=== PATIENT | female | born 1970 | race Caucasian/White ===

== ENCOUNTER 2016-11-18 12:52 | Emergency (ER) | payer BC ==
[~2016-11-18] VITALS: Ht 170.2 cm; Wt 59.0 kg
[~2016-11-18 12:52] MED LIST: ALBU1.25 NEB; BENZ200C40 PO; BUDE10.2 IH; CLON0.1T PO; GABA600T2 PO; MELO-180 PO; TRAM50TA PO; TRAZ150T57 PO
[2016-11-18] MEDS ORDERED: SOLU-MEDROL IM STA (13:16)
[2016-11-18] MEDS ORDERED: ROCEPHIN IM STA (13:16)
[2016-11-18] MEDS ORDERED: LIDOCAINE 1% VIAL ONE (13:20)
[2016-11-18] MEDS ORDERED: SOLU-MEDROL ONE (13:21)
[2016-11-18] MEDS ORDERED: ROCEPHIN ONE (13:21)
--- NOTE | 2016-11-18 13:30 | ER.PDOC ---
General Chief Complaint: General Complaint Stated Complaint: SINUS PROBLEMS Time seen by MD: 13:12 Source: patient Exam Limitations: no limitations History of Present Illness Initial Comments seasonal allergies has caused a sinus infection Timing/Duration: gradual Severity: moderate (maxillary tebderness) Prior symptoms/Treatment: Similar symptoms previous Allergies: Coded Allergies: egg (Verified Allergy, Unknown, 02/01/15) sulfamethoxazole (Verified Allergy, Unknown, Hives, 01/28/16) trimethoprim (Verified Allergy, Unknown, Hives, 01/28/16) Home Meds Reported Medications Budesonide/Formoterol Fumarate (SYMBICORT 160-4.5 MCG INHALER) 10.2 Gm Hfa.aer.ad, 2 PUFF IH BID, #1 INHALER 5 Refills 01/28/16 Benzonatate (BENZONATATE) 200 Mg Capsule, 200 MG PO Q8HR, CAPSULE 01/28/16 Clonidine Hcl (CLONIDINE HCL) 0.1 Mg Tablet, 0.1 MG PO HS, TABLET 01/28/16 Tramadol Hcl (TRAMADOL HCL) 50 Mg Tablet, 50 MG PO TID, TABLET 01/28/16 Trazodone Hcl (TRAZODONE HCL) 150 Mg Tablet, 150 MG PO HS, TABLET 01/28/16 Gabapentin (GABAPENTIN) 600 Mg Tablet, 600 MG PO TID, TABLET 01/28/16 Meloxicam (MELOXICAM) 7.5 Mg Tablet, 7.5 MG PO BID, TABLET 01/28/16 Albuterol Sulfate (ALBUTEROL SULFATE) 1.25 Mg/3 Ml Vial.neb, 1 VIAL NEB Q4HR, # 75 MILLILITER 02/01/15 Constitutional: fever Eyes: no symptoms reported Ears: no symptoms reported Nose: see HPI (maxillary tenderness bilateral) Mouth: no symptoms reported Throat: no symptoms reported Respiratory: no symptoms reported Past Medical History Surgical History: appendectomy, cholecystectomy, , hysterectomy Social History Smoking: greater than 1 pack/day Alcohol Use: none Drug Use: none Physical Exam General Appearance: alert, mild distress Nose: uncertain (bilateral maxillary sinus tenderness to percussion) Head/Neck: atraumatic, thyroid nml Eyes/Ears: eyes nml inspection, PERRL, no nystagmus, TM nml Mouth: lips, gums nml, pharynx nml NEURO/PSYCH: oriented X3, mood/effect nml Respiratory: no resp. distress CVS: reg. rate & rhythm, heart sounds nml Progress Progress discussed treatment plan and need for follow up if symptom persist Departure Time of Disposition: 13:29 Disposition: 01 HOME, SELF-CARE Impression: Primary Impression: Maxillary sinusitis, acute Qualified Codes: J01.00 - Acute maxillary sinusitis, unspecified Condition: Stable Referrals: ANIRUDH HAJI DO (PCP) PRIMARY CARE PROVIDER NOEMI BARNES MD Nov 18, 2016 13:30
[2016-11-18 13:36] VITALS: BP 140/88
== END 2016-11-18 13:44 | disposition home or self-care (01) ==
LOC: ER 12:52
DX: J01.00 Acute maxillary sinusitis, unspecified (principal); F17.200 Nicotine dependence, unspecified, uncomplicated; Z79.899 Other long term (current) drug therapy; Z91.012 Allergy to eggs; Z88.8 Allergy status to other drugs, medicaments and biological substances; Z90.49 Acquired absence of other specified parts of digestive tract
CPT/HCPCS: 96372 ×2; 99284; J0696; J2001; J2930

== ENCOUNTER 2016-12-13 19:53 | Emergency (ER) | payer BC ==
[~2016-12-13] VITALS: Ht 170.2 cm; Wt 59.0 kg
[~2016-12-13 19:53] MED LIST changes: -BENZ200C40 PO; +BENZ200C48 PO; -MELO-180 PO; +MELO7.5T31 PO
[2016-12-13] MEDS ORDERED: SOLU-MEDROL ONE (20:01)
[2016-12-13] MEDS ORDERED: DUONEB 0.5 MG-3 MG/3 ML SOLN IH ONE (20:03)
[2016-12-13] MEDS ORDERED: DECADRON ONE (20:03)
[2016-12-13] MEDS ORDERED: SOLU-MEDROL IM STA (20:26)
[2016-12-13] MEDS ORDERED: DECADRON IH STA ×2 (20:26)
[2016-12-13] MEDS ORDERED: DUONEB 0.5 MG-3 MG/3 ML SOLN IH STA ×2 (20:26)
--- NOTE | 2016-12-13 20:30 | ER.PDOC ---
General Chief Complaint: Cough/Congestion Stated Complaint: COUGH Time seen by MD: 20:29 Source: patient History of Present Illness Initial Comments Cough and congestion for 5 days Severity: moderate Modifying Factors: improves with albuterol nebulizer Associated Symptoms: cough, wheezing Prior symptoms/Treatment: Similar symptoms previous Allergies: Coded Allergies: egg (Verified Allergy, Unknown, 02/01/15) sulfamethoxazole (Verified Allergy, Unknown, Hives, 01/28/16) trimethoprim (Verified Allergy, Unknown, Hives, 01/28/16) Home Meds Reported Medications Budesonide/Formoterol Fumarate (SYMBICORT 160-4.5 MCG INHALER) 10.2 Gm Hfa.aer.ad, 2 PUFF IH BID, #1 INHALER 5 Refills 01/28/16 Benzonatate (BENZONATATE) 200 Mg Capsule, 200 MG PO Q8HR, CAPSULE 01/28/16 Clonidine Hcl (CLONIDINE HCL) 0.1 Mg Tablet, 0.1 MG PO HS, TABLET 01/28/16 Tramadol Hcl (TRAMADOL HCL) 50 Mg Tablet, 50 MG PO TID, TABLET 01/28/16 Trazodone Hcl (TRAZODONE HCL) 150 Mg Tablet, 150 MG PO HS, TABLET 01/28/16 Gabapentin (GABAPENTIN) 600 Mg Tablet, 600 MG PO TID, TABLET 01/28/16 Meloxicam (MELOXICAM) 7.5 Mg Tablet, 7.5 MG PO BID, TABLET 01/28/16 Albuterol Sulfate (ALBUTEROL SULFATE) 1.25 Mg/3 Ml Vial.neb, 1 VIAL NEB Q4HR, # 75 MILLILITER 02/01/15 Past Medical History Medical History: asthma, fibromyalgia Surgical History: appendectomy, cholecystectomy, , hysterectomy LMP (females 10-50): hysterectomy Social History Smoking: cigarettes, less than 1 pack/day Alcohol Use: none Drug Use: none Review of Systems Constitutional: no symptoms reported Respiratory: see HPI Cardiovascular: no symptoms reported Gastrointestinal: no symptoms reported Genitourinary: no symptoms reported All Other Systems: Reviewed and Negative Physical Exam General Appearance: No Apparent Distress, WD/WN Respiratory: chest non-tender, no respiratory distress, wheezing Cardiovascular: Normal Peripheral Pulses, Regular Rate, Rhythm, No Edema, No Gallop, No JVD, No Murmur Gastrointestinal: Normal Bowel Sounds, No Organomegaly, No Pulsatile Mass, Non Tender, Soft Extremities: Normal Range of Motion, Non-Tender, Normal Inspection, No Pedal Edema, No Calf Tenderness, Normal Capillary Refill 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, No Motor/Sensory Deficits, Alert, Normal Mood/Affect, Oriented x 3 Skin: Normal Color, Warm/Dry Results/Orders Results/Orders Administered Medications Medications (Trade) Dose Ordered Sig/Marge Route PRN Reason Start Time Stop Time Status Last Admin Dose Admin Albuterol/ Ipratropium (Duoneb 0.5 Mg-3 Mg/3 ml Soln) 3 ml STAT STAT IH 12/13/16 20:26 12/13/16 20:28 DC 12/13/16 20:33 Dexamethasone Sodium Phosphate (Decadron) 4 mg STAT STAT IH 12/13/16 20:26 12/13/16 20:28 DC 12/13/16 20:32 Methylprednisolone Sodium Succinate (Solu-Medrol) 125 mg STAT STAT IM 12/13/16 20:26 12/13/16 20:28 DC 12/13/16 20:30 Levalbuterol HCl (Xopenex) 1.25 mg STAT STAT IH 12/13/16 20:40 12/13/16 20:41 DC 12/13/16 20:43 Departure Time of Disposition: 21:09 Disposition: 01 HOME, SELF-CARE Impression: Primary Impression: Chronic asthmatic bronchitis with acute exacerbation Condition: Improved Referrals: ANIRUDH HAJI DO (PCP) PRIMARY CARE PROVIDER Additional Instructions: Z pack Prednisone Albuterol HHN F/U with your PCP in 2-3 days BEBE LEARY MD Dec 13, 2016 20:30
[2016-12-13] MEDS ORDERED: XOPENEX IH STA (20:40)
[2016-12-13] MEDS ORDERED: XOPENEX IH ONE (20:40)
[2016-12-13 21:17] VITALS: BP 104/69
== END 2016-12-13 21:15 | disposition home or self-care (01) ==
LOC: ER 19:53
DX: J44.1 Chronic obstructive pulmonary disease with (acute) exacerbation (principal); M79.7 Fibromyalgia; F17.210 Nicotine dependence, cigarettes, uncomplicated; Z90.49 Acquired absence of other specified parts of digestive tract; Z90.710 Acquired absence of both cervix and uterus; Z91.012 Allergy to eggs; Z88.8 Allergy status to other drugs, medicaments and biological substances; Z79.899 Other long term (current) drug therapy
CPT/HCPCS: 94640 ×2; 96372; 99284; J1100; J2930; J7620

== ENCOUNTER 2016-12-22 16:36 | Emergency (ER) | payer BC ==
[~2016-12-22] VITALS: Ht 170.2 cm; Wt 56.7 kg
--- NOTE | 2016-12-22 17:12 | DIREP ---
PROCEDURE:CHEST 2 VIEWS COMPARISON:None. INDICATIONS:chest pain with coughing FINDINGS: LUNGS/PLEURA:Lungs appear hyperinflated. No focal consolidation. No pneumothorax. No effusions. VASCULATURE:Normal. Unremarkable pulmonary vasculature. CARDIAC:Normal. No cardiac silhouette abnormality or cardiomegaly. MEDIASTINUM:Normal. No visible mass or adenopathy. BONES:Normal. No fracture or visible bony lesion. OTHER:Negative. CONCLUSION:COPD is suspected. No acute superimposed process Dictated by: Shiraz Stroud MD on 12/22/2016 at 05:08 PM
--- NOTE | 2016-12-22 17:24 | ER.PDOC ---
General Chief Complaint: Dyspnea/Respdistress Stated Complaint: CHEST PAIN,SHORT OF BREATH Time seen by MD: 17:19 Source: patient, family Exam Limitations: no limitations History of Present Illness Initial Comments 46 year old white female with cough and pleuritic chest pain. Right side of chest hurts when she coughs. This has been getting worse since she was seen last week. Cutting back on smoke but has not. Advised to quit smoking. Afebrile. Some sputum production. Pain is reproducible with coughing. Timing/Duration: 1 week Severity/Quality: moderate Radiation: no radiation Activities at Onset: other (cough) Prior CP/Workup: No Prior Chest Pain Allergies: Coded Allergies: egg (Verified Allergy, Unknown, 02/01/15) sulfamethoxazole (Verified Allergy, Unknown, Hives, 01/28/16) trimethoprim (Verified Allergy, Unknown, Hives, 01/28/16) Home Meds Reported Medications Budesonide/Formoterol Fumarate (SYMBICORT 160-4.5 MCG INHALER) 10.2 Gm Hfa.aer.ad, 2 PUFF IH BID, #1 INHALER 5 Refills 01/28/16 Benzonatate (BENZONATATE) 200 Mg Capsule, 200 MG PO Q8HR, CAPSULE 01/28/16 Clonidine Hcl (CLONIDINE HCL) 0.1 Mg Tablet, 0.1 MG PO HS, TABLET 01/28/16 Tramadol Hcl (TRAMADOL HCL) 50 Mg Tablet, 50 MG PO TID, TABLET 01/28/16 Trazodone Hcl (TRAZODONE HCL) 150 Mg Tablet, 150 MG PO HS, TABLET 01/28/16 Gabapentin (GABAPENTIN) 600 Mg Tablet, 600 MG PO TID, TABLET 01/28/16 Meloxicam (MELOXICAM) 7.5 Mg Tablet, 7.5 MG PO BID, TABLET 01/28/16 Albuterol Sulfate (ALBUTEROL SULFATE) 1.25 Mg/3 Ml Vial.neb, 1 VIAL NEB Q4HR, # 75 MILLILITER 02/01/15 Past Medical History Medical History: fibromyalgia, other (ra/fibromyalgia) Surgical History: no surgical history, cholecystectomy, , hysterectomy LMP (females 10-50): hysterectomy Social History Smoking: less than 1 pack/day Alcohol Use: none Drug Use: none Constitutional: denies no symptoms reported, denies see HPI, denies chills, denies diaphoresis, denies fever, denies malaise, denies weakness, denies other EENTM: denies no symptoms reported, denies see HPI, denies eye pain, denies blurred vision, denies tearing, denies double vision, denies ear pain, denies ear discharge, denies nose pain, denies nose congestion, denies throat pain, denies throat swelling, denies mouth pain, denies mouth swelling, denies other Respiratory: see HPI Cardiovascular: denies no symptoms reported, denies see HPI, denies chest pain , denies edema, denies irregular heart rate, denies lightheadedness, denies palpitations, denies syncope, denies other Gastrointestinal: denies no symptoms reported, denies see HPI, denies abdomen distended, denies abdominal pain, denies blood streaked bowels, denies constipated, denies diarrhea, denies difficulty swallowing, denies nausea, denies poor appetite, denies poor fluid intake, denies rectal bleeding, denies vomiting, denies other Genitourinary: denies no symptoms reported, denies see HPI, denies burning, denies dysuria, denies discharge, denies frequency, denies flank pain, denies hematuria, denies incontinence, denies pain, denies urgency, denies other Musculoskeletal: joint pain, muscle stiffness Skin: denies no symptoms reported, denies see HPI, denies change in color, denies change in hair/nails, denies dryness, denies lesions, denies lumps, denies rash, denies other Psychiatric/Neurological: depressed Physical Exam General Appearance: No Apparent Distress, WD/WN HEENT: PERRL/EOMI, Normal ENT Inspection, TMs Normal, Pharynx Normal Neck: Non-Tender, Full Range of Motion, Supple, Normal Inspection Respiratory: chest non-tender, lungs clear, normal breath sounds, no respiratory distress, no accessory muscle use Cardiovascular: Normal Peripheral Pulses, Regular Rate, Rhythm, No Edema, No Gallop, No JVD, No Murmur Gastrointestinal: Normal Bowel Sounds, No Organomegaly, No Pulsatile Mass, Non Tender, Soft Extremities: Normal Range of Motion, Non-Tender, Normal Inspection, No Pedal Edema, No Calf Tenderness, Normal Capillary Refill 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
[2016-12-22 17:41] VITALS: BP 165/107
== END 2016-12-22 17:39 | disposition home or self-care (01) ==
LOC: ER 16:36
DX: J40 Bronchitis, not specified as acute or chronic (principal); R07.1 Chest pain on breathing; F17.210 Nicotine dependence, cigarettes, uncomplicated; M79.7 Fibromyalgia; Z79.899 Other long term (current) drug therapy; Z91.012 Allergy to eggs; Z88.8 Allergy status to other drugs, medicaments and biological substances
CPT/HCPCS: 71020; 99284

== ENCOUNTER 2018-02-28 20:28 | Emergency (ER) | payer BC ==
[~2018-02-28] VITALS: Ht 170.2 cm; Wt 65.8 kg
[~2018-02-28 20:28] MED LIST changes: -GABA600T2 PO; +GABA600T7 PO
[2018-02-28] MEDS ORDERED: AUGMENTIN 875-125 TABLET PO STA (20:51)
[2018-02-28 20:57] VITALS: BP 147/89
[2018-02-28] MEDS ORDERED: TORADOL IM ONE (21:00)
--- NOTE | 2018-02-28 21:01 | ER.PDOC ---
General Chief Complaint: Animal Bite Stated Complaint: DOG BITE Time seen by MD: 20:50 Source: patient Exam Limitations: no limitations History of Present Illness Initial Comments Dog bite by own dog, unprovoked Where: home Animal: dog Animal Appearance: appeared well Animal Immunizations: UTD Animal Disposition: Animal Known Context of Attack: "unprovoked" attack Severity of Injury: bitten Injury Location: upper extremity (wrist dorsum and palmar) Allergies: Coded Allergies: egg (Verified Allergy, Unknown, 02/01/15) sulfamethoxazole (Verified Allergy, Unknown, Hives, 01/28/16) trimethoprim (Verified Allergy, Unknown, Hives, 01/28/16) Home Meds Reported Medications Budesonide/Formoterol Fumarate (SYMBICORT 160-4.5 MCG INHALER) 10.2 Gm Hfa.aer.ad, 2 PUFF IH BID, #1 INHALER 5 Refills 01/28/16 Benzonatate (BENZONATATE) 200 Mg Capsule, 200 MG PO Q8HR, CAPSULE 01/28/16 Clonidine Hcl (CLONIDINE HCL) 0.1 Mg Tablet, 0.1 MG PO HS, TABLET 01/28/16 Tramadol Hcl (TRAMADOL HCL) 50 Mg Tablet, 50 MG PO TID, TABLET 01/28/16 Trazodone Hcl (TRAZODONE HCL) 150 Mg Tablet, 150 MG PO HS, TABLET 01/28/16 Gabapentin (GABAPENTIN) 600 Mg Tablet, 600 MG PO TID, TABLET 01/28/16 Meloxicam (MELOXICAM) 7.5 Mg Tablet, 7.5 MG PO BID, TABLET 01/28/16 Albuterol Sulfate (ALBUTEROL SULFATE) 1.25 Mg/3 Ml Vial.neb, 1 VIAL NEB Q4HR, # 75 MILLILITER 02/01/15 Past Medical History Surgical History: cholecystectomy, hysterectomy LMP (females 10-50): hysterectomy Social History Smoking: greater than 1 pack/day Alcohol Use: occassionally Drug Use: none Review of Systems Skin: see HPI All Other Systems: Reviewed and Negative Physical Exam General Appearance: alert, no distress Skin: puncture, laceration (on dorsum and palmar aspect of right wrist) Neuro/Vascular/Tendon: no vascular compromise, sensation nml, oriented x3, nml ROM, CN's nml as tested Psych: mood/affect nml HEENT: atraumatic, PERRL, eye lids/conjun nml, ENT nml external inspect. Neck: uninjured, nml inspection Resp/CVS: chest non-tender, breath sounds nml, heart sounds nml, reg. rate & rhythm Abdomen: nml inspection, non-tender Back: nml inspection Extremities: nml inspection, no infection, ROM nml Course Sepsis Screening Results: Posi: POSITIVE SEPSIS RISK Vitals & review Data Vital Sign - Last 24 Hours 02/28/18 02/28/18 20:52 20:52 Temp 98.8 98.8 98.8 98.8 Pulse 89 89 Resp 20 20 Pulse Ox 99 O2 Delivery Room Air Sepsis Infection Criteria Pres: Suspected Infection O2 Sat by Pulse Oximetry: 99 Departure Time of Disposition: 20:59 Disposition: 01 HOME, SELF-CARE Impression: Primary Impression: Dog bite Condition: Stable Referrals: OSWALDO TOMAS CERTIFIED COURT/MEDICAL INTERPRETER (PCP) PRIMARY CARE PROVIDER Duration or Time Spent with Pa: 10 SHITAL OTTO MD Feb 28, 2018 21:01
[2018-02-28] MEDS ORDERED: AUGMENTIN 875-125 TABLET ONE (21:05)
[2018-02-28] MEDS ORDERED: TORADOL ONE (21:06)
[2018-02-28 21:57] VITALS: BP 147/89
== END 2018-02-28 21:54 | disposition home or self-care (01) ==
LOC: ER 20:28
DX: S61.551A Open bite of right wrist, initial encounter (principal); S61.511A Laceration without foreign body of right wrist, initial encounter; F17.210 Nicotine dependence, cigarettes, uncomplicated; Z88.2 Allergy status to sulfonamides; Z88.1 Allergy status to other antibiotic agents; Z91.012 Allergy to eggs; Z90.49 Acquired absence of other specified parts of digestive tract; Z90.710 Acquired absence of both cervix and uterus; Z79.899 Other long term (current) drug therapy; W54.0XXA Bitten by dog, initial encounter; Y93.89 Activity, other specified; Y92.098 Other place in other non-institutional residence as the place of occurrence of the external cause; Y99.8 Other external cause status
CPT/HCPCS: 96372; 99284; J1885

== ENCOUNTER 2018-03-01 15:21 | Emergency (ER) | payer BC ==
[~2018-03-01] VITALS: Ht 170.2 cm; Wt 65.8 kg
--- NOTE | 2018-03-01 15:24 | NUR ---
ARRIVAL PT ARRIVED AMBULATORY TO ER 8 C/O PAIN AND SWELLING TO RIGHT HAND. PT STATES WAS SEEN IN ER LAST NIGHT FOR DOG BITE. PT STATES TODAY IS HAVING PAIN AND SWELLING TO RIGHT HAND/RIGHT AREA. NO ACUTE DISTRESS NOTED. EDP NOTIFIED OF PT ARRIVAL.
[2018-03-01] MEDS ORDERED: TORADOL IM STA (15:40)
[2018-03-01] MEDS ORDERED: TORADOL ONE (15:44)
[2018-03-01 15:47] VITALS: BP 144/98
--- NOTE | 2018-03-01 16:11 | DIREP ---
PROCEDURE:XRAY WRIST MIN 3VW-RT COMPARISON:None. INDICATIONS:Pain from dog bite FINDINGS: BONES:Normal. JOINTS:Normal. SOFT TISSUES:Normal. OTHER:No additional findings. CONCLUSION:Normal right wrist. Dictated by: Adam Rodríguez M.D. on 03/01/2018 at 04:07 PM
--- NOTE | 2018-03-01 16:19 | ER.PDOC ---
General Chief Complaint: Extremities Stated Complaint: RIGHT HAND INJURY SWELLING Time seen by MD: 15:45 Source: patient Exam Limitations: no limitations History of Present Illness Initial Comments Right wrist pain S/P dog bite yesterday. Seen in the ED yesterday and prescribed Augmentin but came today for pain. Occurred: yesterday Where: home Severity: moderate Context: animal bite Allergies: Coded Allergies: egg (Verified Allergy, Unknown, 02/01/15) sulfamethoxazole (Verified Allergy, Unknown, Hives, 01/28/16) trimethoprim (Verified Allergy, Unknown, Hives, 01/28/16) Home Meds Reported Medications Budesonide/Formoterol Fumarate (SYMBICORT 160-4.5 MCG INHALER) 10.2 Gm Hfa.aer.ad, 2 PUFF IH BID, #1 INHALER 5 Refills 01/28/16 Benzonatate (BENZONATATE) 200 Mg Capsule, 200 MG PO Q8HR, CAPSULE 01/28/16 Clonidine Hcl (CLONIDINE HCL) 0.1 Mg Tablet, 0.1 MG PO HS, TABLET 01/28/16 Tramadol Hcl (TRAMADOL HCL) 50 Mg Tablet, 50 MG PO TID, TABLET 01/28/16 Trazodone Hcl (TRAZODONE HCL) 150 Mg Tablet, 150 MG PO HS, TABLET 01/28/16 Gabapentin (GABAPENTIN) 600 Mg Tablet, 600 MG PO TID, TABLET 01/28/16 Meloxicam (MELOXICAM) 7.5 Mg Tablet, 7.5 MG PO BID, TABLET 01/28/16 Albuterol Sulfate (ALBUTEROL SULFATE) 1.25 Mg/3 Ml Vial.neb, 1 VIAL NEB Q4HR, # 75 MILLILITER 02/01/15 Past Medical History Medical History: fibromyalgia Surgical History: cholecystectomy, hysterectomy LMP (females 10-50): hysterectomy Social History Smoking: greater than 1 pack/day Alcohol Use: none Drug Use: none Review of Systems Constitutional: no symptoms reported EENTM: no symptoms reported Respiratory: no symptoms reported Cardiovascular: no symptoms reported Gastrointestinal: no symptoms reported Musculoskeletal: see HPI All Other Systems: Reviewed and Negative Physical Exam General Appearance: Alert, No Apparent Distress Hand: non-tender Wrist: tenderness (with swelling of right wrist. Laceration posteriorly) Neuro: sensation nml, motor nml Vascular: no vascular compromise Tendons: tendon function nml Forearm/Elbow/Arm: uninjured above wrist Head/ENT: nml inspection, pharynx nml Neck/Back: nml inspection, non-tender Resp/CVS: no resp distress, lungs clear, heart sounds nml, reg. rate & rhythm Abdomen: non-tender, no organomegaly Results/Orders Results/Orders Administered Medications Medications (Trade) Dose Ordered Sig/Marge Route PRN Reason Start Time Stop Time Status Last Admin Dose Admin Ketorolac Tromethamine (Toradol) 60 mg STAT STAT IM 03/01/18 15:40 03/01/18 15:41 DC 03/01/18 15:52 EKG/XRAY/CT/US XRAY Comments: Normal wrist Departure Time of Disposition: 16:16 Disposition: 01 HOME, SELF-CARE Impression: Primary Impression: Injury of wrist, right Additional Impression: Dog bite Condition: Stable Referrals: ANIRUDH HAJI DO (PCP) PRIMARY CARE PROVIDER Additional Instructions: Tramadol Ibuprofen Continue Augmentin F/U with PCP next week Duration or Time Spent with Pa: 45 mins Problem Qualifiers Primary Impression: Injury of wrist, right Encounter type: initial encounter Qualified Codes: S69.91XA - Unspecified injury of right wrist, hand and finger(s), initial encounter Additional Impression: Dog bite Encounter type: initial encounter Qualified Codes: W54.0XXA - Bitten by dog , initial encounter BEBE LEARY MD Mar 01, 2018 16:18
[2018-03-01 16:40] VITALS: BP 124/84
[2018-03-01 16:47] VITALS: BP 124/84
== END 2018-03-01 16:40 | disposition home or self-care (01) ==
LOC: ER 15:21
DX: S61.551A Open bite of right wrist, initial encounter (principal); F17.210 Nicotine dependence, cigarettes, uncomplicated; Z88.2 Allergy status to sulfonamides; Z88.1 Allergy status to other antibiotic agents; Z91.012 Allergy to eggs; Z79.899 Other long term (current) drug therapy; Z90.49 Acquired absence of other specified parts of digestive tract; Z90.710 Acquired absence of both cervix and uterus; W54.0XXA Bitten by dog, initial encounter; Y93.89 Activity, other specified; Y92.098 Other place in other non-institutional residence as the place of occurrence of the external cause; Y99.8 Other external cause status
CPT/HCPCS: 73110; 96372; 99285; J1885

== ENCOUNTER 2020-01-30 00:32 | Emergency (ER) | payer OTHER ==
[~2020-01-30] VITALS: Ht 170.2 cm; Wt 69.4 kg
[~2020-01-30 00:32] MED LIST changes: +ALPR0.254 PO; +ASPI-929 PO; +CARV6.252 PO; +NITR0.4T SL; +PANT40TA3 PO; +RANO500T2 PO; +ROSU20TA2 PO; +TICA90TA PO
[2020-01-30 00:43] VITALS: BP 154/94
--- NOTE | 2020-01-30 00:45 | NUR ---
ARRIVAL PT ARRIVED TO ER 3 VIA WHEELCHAIR WITH C/O CHEST PAIN. PT STATES CHEST PAIN THAT "FEELS LIKE ICE WATER ALL THROUGH MY CHEST". STATES IT FEELS LIKE A BURNING SENSATION THAT "GOES TO MY BACK". RATES PAIN 5-07/21. EDP NOTIFIED OF ARRIVAL.
[2020-01-30] MEDS ORDERED: ASPIRIN PO STA (00:47)
--- NOTE | 2020-01-30 00:50 | ER.PDOC ---
General Chief Complaint: Chest Pain-Cardiac Nature Stated Complaint: CHEST PAIN Time seen by : 00:49 Source: patient Exam Limitations: no limitations History of Present Illness Initial Comments Chest pain Timing/Duration: 1 hour Severity/Quality: mild, burning (across the entire chest) Radiation: no radiation Activities at Onset: none Prior CP/Workup: Cardiac Cath (with stent placemant 5 days ago), Echocardiography, Heart Attack Nitro Today/Relief: 0.4 mg x 1 Aspirin Today: 325 mg x 1, Provided By ED Associated Symptoms: shortness of breath Allergies: Coded Allergies: egg (Verified Allergy, Unknown, 02/01/15) sulfamethoxazole (Verified Allergy, Unknown, Hives, 01/28/16) trimethoprim (Verified Allergy, Unknown, Hives, 01/28/16) Home Meds Active Scripts Pantoprazole Sodium (PROTONIX) 40 Mg Tablet.dr, 40 MG PO DAILY for 30 Days Prov:MINNIE MORIN MD 01/26/20 Alprazolam (ALPRAZOLAM) 0.25 Mg Tablet, 0.25 MG PO BID for 30 Days, TAB Prov:MINNIE MORIN MD 01/26/20 Aspirin (ASPIRIN EC) 81 Mg Tablet.dr, 81 MG PO DAILY for 30 Days Prov:MINNIE MORIN MD 01/26/20 Rosuvastatin 20MG (CRESTOR 20MG) 20 Mg Tablet, 20 MG PO HS for 30 Days, TAB Prov:MINNIE MORIN MD 01/26/20 Ranolazine (RANEXA) 500 Mg Tab.er.12h, 500 MG PO BID for 30 Days, TAB Prov:MINNIE MORIN MD 01/26/20 Nitroglycerin (NITROSTAT) 0.4 Mg Tab.subl, 0.4 MG SL PRN PRN for CHEST PAIN for 30 Days, TAB Prov:MINNIE MORIN MD 01/26/20 Carvedilol (CARVEDILOL) 6.25 Mg Tablet, 6.25 MG PO BID for 30 Days, TAB Prov:MINNIE MORIN MD 01/26/20 Ticagrelor (BRILINTA) 90 Mg Tablet, 90 MG PO BID for 30 Days, TAB Prov:MINNIE MORIN MD 01/26/20 Reported Medications Budesonide/Formoterol Fumarate (SYMBICORT 160-4.5 MCG INHALER) 10.2 Gm Hfa.aer.ad, 2 PUFF IH BID, #1 INHALER 5 Refills 01/28/16 Benzonatate (BENZONATATE) 200 Mg Capsule, 200 MG PO Q8HR, CAPSULE 01/28/16 Trazodone Hcl (TRAZODONE HCL) 150 Mg Tablet, 150 MG PO HS, TABLET 01/28/16 Albuterol Sulfate (ALBUTEROL SULFATE) 1.25 Mg/3 Ml Vial.neb, 1 VIAL NEB Q4HR, #75 MILLILITER 02/01/15 Past Medical History Medical History: high cholesterol, hypertension Surgical History: appendectomy, cholecystectomy, hysterectomy, stent Family History Significant Family History: no pertinent family hx Social History Alcohol Use: none Drug Use: none Constitutional: no symptoms reported EENTM: no symptoms reported Respiratory: see HPI Cardiovascular: see HPI Gastrointestinal: no symptoms reported Genitourinary: no symptoms reported All Other Systems: Reviewed and Negative Physical Exam General Appearance: No Apparent Distress, WD/WN Neck: Non-Tender, Full Range of Motion, Supple, Normal Inspection Respiratory: chest non-tender, lungs clear, normal breath sounds, no respiratory distress, no accessory muscle use Cardiovascular: Normal Peripheral Pulses, Regular Rate, Rhythm, No Edema, No Gallop, No JVD, No Murmur Gastrointestinal: Normal Bowel Sounds, No Organomegaly, No Pulsatile Mass, Non Tender, Soft Extremities: Normal Range of Motion, Non-Tender, Normal Inspection, No Pedal Edema, No Calf Tenderness, Normal Capillary Refill 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 (01/30/20 00:42) D-Dimer (01/30/20 00:42) Xr Chest 1v (01/30/20 00:42) Ekg-Routine (01/30/20 00:42) Aspirin (Aspirin) (01/30/20 00:47) Nitroglycerin (Nitrostat) (01/30/20 01:00) Vital Signs Date Time Temp Pulse Resp B/P (MAP) Pulse Ox O2 Delivery O2 Flow Rate FiO2 01/30/20 00:43 98.0 75 18 97 Progress Progress Spoke with Dr. Morin and he told me to D/C patient home. Patient is currently pain free, doing well. She is ready to go home. Her cardiac enzymes are unremarkable. EKG/XRAY/CT/US EKG: NSR, no ST T wave changes EKG Comments: Rate: 62, normal axis XRAY: chest (No active disease) ER DEPART Departure Time of Disposition: 01:40 Disposition: 01 HOME, SELF-CARE Impression: Primary Impression: Chest pain Condition: Improved Referrals: ANIRUDH HAJI DO (PCP) PRIMARY CARE PROVIDER Additional Instructions: Continue home medications F/U with Dr. Morin in 2-3 days Return to ED if worsening pain or concerns Duration or Time Spent with Pa: 60 min Problem Qualifiers Primary Impression: Chest pain Chest pain type: unspecified Qualified Codes: R07.9 - Chest pain, unspecified BEBE LEARY MD Jan 30, 2020 00:50
[2020-01-30 00:54] LABS: BASOPHIL # 0.1 10^3/uL (0.0-0.1); BASOPHIL % 0.7 % (0.0-0.2); EOSINOPHIL # 0.1 10^3/uL (0.0-0.2); EOSINOPHIL % 1.6 % (0.0-5.0); LYMPHOCYTES # 3.66 10^3/uL1 (1.0-4.8); LYMPHOCYTES % 42.3 % (24.0-44.0); MEAN CORP HGB 31.2 pg (26-34); MONOCYTES # 0.5 10^3/uL (0.3-0.8); MONOCYTES % 6.1 % (5.0-12.0); NEUTROPHIL # 4.2 10^3/uL (1.8-7.7); NEUTROPHILS % 49.1 % (41.0-85.0); PLATELET COUNT 364 10^3/uL (150-400)
--- NOTE | 2020-01-30 00:55 | PCM.EKG ---
[facility] Test Date: 2020-01-30 Test Time: 00:51:21 Pat Name: MISTY BOLDEN Department: Room: Gender: F Revenue Cycle Administrator: JOSE : 1970 Requested By: BEBE LEARY Order Number: [id number] Reading MD: Bebe LEARY Measurements Intervals [place] Rate: 62 P: 81 [place]: 134 QRS: 86 QRSD: 119 T: 54 QT: 449 QTc: 456 Interpretive Statements Sinus rhythm Nonspecific intraventricular conduction delay Compared to ECG 01/25/2020 15:36:05 Intraventricular conduction delay now present Left posterior fascicular block no longer present Electronically Signed On 02-01-2020 22:24:55 MACHINE II CUTTER by Bebe LEARY Please click the below link to view image of tracing.
--- NOTE | 2020-01-30 00:59 | NUR ---
CRISTINA LE MBA ON PHONE WITH DR. EVANS AT THIS TIME.
[2020-01-30] MEDS ORDERED: ASPIRIN ONE (01:00)
[2020-01-30] MEDS ORDERED: NITROSTAT SL PRN (01:00)
--- NOTE | 2020-01-30 01:11 | DIREP ---
PROCEDURE:CHEST 1 VIEW COMPARISON:[facility], CR, XRAY CHEST SINGLE VW, 01/25/2020, 05:46 PM. INDICATIONS:Chest pain FINDINGS: LUNGS/PLEURA:Emphysema. No superimposed consolidation or pleural effusion VASCULATURE:Normal. Unremarkable pulmonary vasculature. CARDIAC:Normal. No cardiac silhouette abnormality or cardiomegaly. MEDIASTINUM:Atheromatous calcifications of the aortic arch BONES:Normal. No fracture or visible bony lesion. OTHER:EKG leads CONCLUSION:Emphysema. No active cardiopulmonary disease process Dictated by: Smiley Samuel M.D. on 01/30/2020 at 01:09 AM
--- NOTE | 2020-01-30 01:14 | NUR ---
D-DIMER SARIKA CALLED WITH D-DIMER OF 0.[address] LEARY NOTIFIED.
[2020-01-30 01:22] LABS: ALANINE AMINOTRANSFERASE(ML) 20 U/L (12-78); ALKALINE PHOSPHATASE 131 U/L (50-136); ASPARTATE AMINO TRANSFERASE 21 U/L (0-35); CALCIUM 8.9 mg/dL (8.4-10.5); CARBON DIOXIDE 24.2 mmol/L (20.0-32); GLUCOSE 134 mg/dL (70-110)
[2020-01-30 01:50] VITALS: BP 123/69
== END 2020-01-30 01:49 | disposition home or self-care (01) ==
LOC: ER 00:32
DX: R07.9 Chest pain, unspecified (principal); R06.02 Shortness of breath; I10 Essential (primary) hypertension; E78.00 Pure hypercholesterolemia, unspecified; Z79.51 Long term (current) use of inhaled steroids; Z79.82 Long term (current) use of aspirin; Z79.899 Other long term (current) drug therapy; Z88.1 Allergy status to other antibiotic agents; Z88.2 Allergy status to sulfonamides; Z90.49 Acquired absence of other specified parts of digestive tract; Z90.710 Acquired absence of both cervix and uterus; Z91.012 Allergy to eggs
CPT/HCPCS: 36415; 71045; 80053; 82550; 82553; 83880; 84484; 85025; 85379; 85610; 85730; 93005; 99285

== ENCOUNTER 2020-02-18 12:38 | Emergency (ER) | payer OTHER ==
[~2020-02-18] VITALS: Ht 170.2 cm; Wt 68.9 kg
--- NOTE | 2020-02-18 12:45 | NUR ---
PT TO ROOM 8 VIA WHEELCHAIR PT C/C CHEST PAIN FOR 15 MINUTES PT HAD A DTENT PLACED YESTERDAY. PT STS SHE WAS GETTING READY TO WALK INTO [facility] WHEN PAIN STARTED. PT DENIES N/V/D.
--- NOTE | 2020-02-18 12:47 | ER.PDOC ---
General Chief Complaint: Requesting Medical Care Stated Complaint: CHEST PAIN/SOB Time seen by MD: 12:46 Source: patient Exam Limitations: no limitations History of Present Illness Initial Comments Patient c/o chest pain similar to that she experienced prior to placement of RCA stent January 25, 2020--burning, pressure, substernal. Denies radiation of pa in, SOB, nausea or diaphoresis. 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 Timing/Duration: 1/2 hour Severity/Quality: moderate (7/10 at worst), burning, pressure Radiation: no radiation Activities at Onset: rest Prior CP/Workup: Cardiac Cath (with stent placed in RCA 01/25/2020) Nitro Today/Relief: No Nitro Taken Today Aspirin Today: No Aspirin Today Associated Symptoms: denies symptoms Prior symptoms/Treatment: Similar symptoms previous Allergies: Coded Allergies: egg (Verified Allergy, Unknown, 02/01/15) sulfamethoxazole (Verified Allergy, Unknown, Hives, 01/28/16) trimethoprim (Verified Allergy, Unknown, Hives, 01/28/16) Home Meds Active Scripts Pantoprazole Sodium (PROTONIX) 40 Mg Tablet.dr, 40 MG PO DAILY for 30 Days Prov:MINNIE MORIN MD 01/26/20 Alprazolam (ALPRAZOLAM) 0.25 Mg Tablet, 0.25 MG PO BID for 30 Days, TAB Prov:MINNIE MORIN MD 01/26/20 Aspirin (ASPIRIN EC) 81 Mg Tablet.dr, 81 MG PO DAILY for 30 Days Prov:MINNIE MORIN MD 01/26/20 Rosuvastatin 20MG (CRESTOR 20MG) 20 Mg Tablet, 20 MG PO HS for 30 Days, TAB Prov:MINNIE MORIN MD 01/26/20 Ranolazine (RANEXA) 500 Mg Tab.er.12h, 500 MG PO BID for 30 Days, TAB Prov:MINNIE MORIN MD 01/26/20 Nitroglycerin (NITROSTAT) 0.4 Mg Tab.subl, 0.4 MG SL PRN PRN for CHEST PAIN for 30 Days, TAB Prov:MINNIE MORIN MD 01/26/20 Carvedilol (CARVEDILOL) 6.25 Mg Tablet, 6.25 MG PO BID for 30 Days, TAB Prov:MINNIE MORIN MD 01/26/20 Ticagrelor (BRILINTA) 90 Mg Tablet, 90 MG PO BID for 30 Days, TAB Prov:MINNIE MORIN MD 01/26/20 Reported Medications Budesonide/Formoterol Fumarate (SYMBICORT 160-4.5 MCG INHALER) 10.2 Gm Hfa.aer.ad, 2 PUFF IH BID, #1 INHALER 5 Refills 01/28/16 Benzonatate (BENZONATATE) 200 Mg Capsule, 200 MG PO Q8HR, CAPSULE 01/28/16 Trazodone Hcl (TRAZODONE HCL) 150 Mg Tablet, 150 MG PO HS, TABLET 01/28/16 Albuterol Sulfate (ALBUTEROL SULFATE) 1.25 Mg/3 Ml Vial.neb, 1 VIAL NEB Q4HR, #75 MILLILITER 02/01/15 Past Medical History Medical History: coronary artery disease, high cholesterol, hypertension Surgical History: cardiac cath (with RCA stent placed 01/25/2020), appendectomy, cholecystectomy, hysterectomy, stent Family History Significant Family History: no pertinent family hx Social History Smoking: cigarettes (15 cigs per day (down from 1.5 ppd)) Alcohol Use: none Drug Use: none Constitutional: denies no symptoms reported, denies see HPI, denies chills, denies diaphoresis, denies fever, denies malaise, denies weakness, denies other EENTM: denies no symptoms reported, denies see HPI, denies eye pain, denies blurred vision, denies tearing, denies double vision, denies ear pain, denies ear discharge, denies nose pain, denies nose congestion, denies throat pain, denies throat swelling, denies mouth pain, denies mouth swelling, denies other Respiratory: denies no symptoms reported, denies see HPI, denies cough, denies orthopnea, denies shortness of breath, denies SOB with exertion, denies SOB at rest, denies stridor, denies wheezing, denies other Cardiovascular: see HPI, chest pain Gastrointestinal: denies no symptoms reported, denies see HPI, denies abdomen distended, denies abdominal pain, denies blood streaked bowels, denies constipated, denies diarrhea, denies difficulty swallowing, denies nausea, denies poor appetite, denies poor fluid intake, denies rectal bleeding, denies vomiting, denies other Genitourinary: denies no symptoms reported, denies see HPI, denies burning, denies dysuria, denies discharge, denies frequency, denies flank pain, denies hematuria, denies incontinence, denies pain, denies urgency, denies other Musculoskeletal: denies no symptoms reported, denies see HPI, denies back pain, denies gout, denies joint pain, denies joint swelling, denies muscle pain, denies muscle stiffness, denies neck pain, denies other Skin: denies no symptoms reported, denies see HPI, denies change in color, denies change in hair/nails, denies dryness, denies lesions, denies lumps, denies rash, denies other All Other Systems: Reviewed and Negative Physical Exam General Appearance: No Apparent Distress, WD/WN HEENT: PERRL/EOMI, Normal ENT Inspection Neck: Non-Tender, Full Range of Motion, Supple Respiratory: lungs clear, normal breath sounds, no respiratory distress, no accessory muscle use Cardiovascular: Regular Rate, Rhythm, No Murmur Gastrointestinal: Normal Bowel Sounds, No Pulsatile Mass, Non Tender Extremities: Non-Tender, No Pedal Edema, No Calf Tenderness Neurologic/Psychiatric: Alert, Normal Mood/Affect, Oriented x 3 Skin: Normal Color, Warm/Dry Progress Progress H Pylori positive. Cardiac enzymes WNL. EKG/XRAY/CT/US EKG Comments: NSR, VR 64, borderline IVCD, no acute STT changes Consult/PCP Time Consult/PCP Called: 12:42 Consult/PCP: Dr. Morin called to request orders Reason/Comments: give nitro and ranexa and call with results #2 Time Consult/PCP Called: 13:48 Consult/PCP: texted results to Dr. Morin Reason/Comments: d/c to his office ER DEPART Departure Time of Disposition: 13:56 Disposition: 01 HOME, SELF-CARE Impression: Primary Impression: Chest pain Additional Impressions: Tobacco dependence due to cigarettes H. pylori infection Condition: Improved Patient Instructions: Chest Pain (Nonspecific), Helicobacter Pylori Antibodies Test Referrals: MINNIE MORIN MD (PCP) PRIMARY CARE PROVIDER Additional Instructions: Take antibiotics as prescribed until all gone. Go immediately to Dr. Morin's office for follow up and instructions concerning lexiscan. Return to ER if chest pain returns/worsens, difficulty breathing or for any other emergent concerns. Duration or Time Spent with Pa: 25 min Problem Qualifiers Primary Impression: Chest pain Chest pain type: precordial pain Qualified Codes: R07.2 - Precordial pain LORI RILEY DO Feb 18, 2020 12:47
[2020-02-18 12:57] VITALS: BP 154/106
[2020-02-18] MEDS ORDERED: ASPIRIN ONE (12:57)
[2020-02-18 12:58] LABS: BASOPHIL % 0.4 % (0.0-0.2); EOSINOPHIL # 0.2 10^3/uL (0.0-0.2); EOSINOPHIL % 2.1 % (0.0-5.0); LYMPHOCYTES # 3.71 10^3/uL1 (1.0-4.8); LYMPHOCYTES % 41.3 % (24.0-44.0); MEAN CORP HGB 31.1 pg (26-34); MONOCYTES # 0.5 10^3/uL (0.3-0.8); MONOCYTES % 5.5 % (5.0-12.0); NEUTROPHIL # 4.5 10^3/uL (1.8-7.7); NEUTROPHILS % 50.6 % (41.0-85.0); PLATELET COUNT 390 10^3/uL (150-400); RED CELL DISTRIBUTION WIDTH 12.8 % (11.5-14.5)
[2020-02-18] MEDS: ASPIRIN PO PRN ×3 (13:00→13:25)
[2020-02-18] MEDS ORDERED: RANEXA PO STA (13:13)
--- NOTE | 2020-02-18 13:13 | NUR ---
ASPRIN AND NITRO GIVEN PAIN DECREASED TO 2
--- NOTE | 2020-02-18 13:20 | DIREP ---
PROCEDURE:CHEST 1 VIEW COMPARISON:[facility], CR, XRAY CHEST SINGLE VW, 01/30/2020, 00:54 AM. INDICATIONS:chest pain FINDINGS: LUNGS/PLEURA:Emphysema. No confluent pulmonary infiltrate. No effusions. No pneumothorax. VASCULATURE:Unremarkable pulmonary vasculature. CARDIAC:No cardiac silhouette abnormality or cardiomegaly. MEDIASTINUM:No visible mass or adenopathy. BONES:No fracture or visible bony lesion. OTHER:Negative. CONCLUSION: Emphysema. No pulmonary infiltrate or pneumothorax identified. Dictated by: Felicia Leonardo MD on 02/18/2020 at 01:19 PM
[2020-02-18 13:28] VITALS: BP 153/90
[2020-02-18] MEDS ORDERED: NITROSTAT SL PRN (13:30)
[2020-02-18 13:31] LABS: ALANINE AMINOTRANSFERASE(ML) 29 U/L (12-78); ALKALINE PHOSPHATASE 120 U/L (50-136); ASPARTATE AMINO TRANSFERASE 26 U/L (0-35); CALCIUM 9.1 mg/dL (8.4-10.5); CARBON DIOXIDE 24.8 mmol/L (20.0-32); GLUCOSE 112 mg/dL (70-110)
--- NOTE | 2020-02-18 13:35 | PCM.EKG ---
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
--- NOTE | 2020-02-18 14:05 | NUR ---
PT DISCHARGED TO DR.KAMNANIS GARZA
== END 2020-02-18 14:05 | disposition home or self-care (01) ==
LOC: ER 12:38
DX: R07.2 Precordial pain (principal); F17.210 Nicotine dependence, cigarettes, uncomplicated; B96.81 Helicobacter pylori [H. pylori] as the cause of diseases classified elsewhere
CPT/HCPCS: 36415; 71045; 80053; 82550; 82553; 83880; 84484; 85025; 85379; 85610; 85730; 86677; 93005; 99285

== ENCOUNTER 2020-02-23 01:37 | Observation (INO) | payer OTHER ==
[2020-02-23] VITALS (61 sets, daily range): BP systolic 102–162; BP diastolic 53–102
[~2020-02-23] VITALS: Ht 170.2 cm; Wt 62.7 kg
--- NOTE | 2020-02-23 01:40 | NUR ---
ARRIVAL PT REPORTING CENTRALIZED CHEST PAIN SINCE 11PM. QUALITY DESCRIBED "COLD", "ICE", "DULL", AND "DISCOMFORT". PER PT, PAIN RADIATES TO BILATERAL LOWER LEGS. REPORTING DIZZINESS WITH MOVEMENT, AND SOB WHILE LAYING FLAT. PT REPORTING 1 CARDIAC STENT WAS PLACED ON 01/24/21. PT RECENTLY SEEN FOR SAME COMPLAINT SATURDAY. PT IS SCHEDULED FOR STRESS TEST TODAY AT 10AM. HOSP[facility]ER DR. EVANS. PT WHEELED TO ED ROOM 6 WITH WHEELCHAIR. PT IN NAD WITH RR EVEN AND UNLABORED.
[2020-02-23] MEDS ORDERED: NITRO-BID TD STA (01:52)
--- NOTE | 2020-02-23 01:55 | PCM.EKG ---
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
[2020-02-23] MEDS ORDERED: ASPIRIN PO PRN (02:00)
--- NOTE | 2020-02-23 02:00 | ER.PDOC ---
General Chief Complaint: Requesting Medical Care Stated Complaint: CHEST PAIN Time seen by MD: 01:52 Source: patient Exam Limitations: no limitations History of Present Illness Initial Comments Patient c/o chest pain onset 2300 last night, unrelieved with nitro. Pain similar to that she experienced prior to her cardiac stent that was placed 01/25/2020. Timing/Duration: 1-3 hours Severity/Quality: mild (3/10) Radiation: no radiation Activities at Onset: rest Prior CP/Workup: Cardiac Cath (with RCA stent placed 01/25/2020) Nitro Today/Relief: 0.4 mg x 3 (no relief) Aspirin Today: 325 mg x 1 (two) Associated Symptoms: denies symptoms Prior symptoms/Treatment: Similar symptoms previous, Recenly Seen (here 02/17 for same), Treated by Doctor (Dr. Morin) Allergies: Coded Allergies: codeine (Verified Allergy, Unknown, 02/23/20) egg (Verified Allergy, Unknown, 02/01/15) pseudoephedrine (Verified Allergy, Unknown, 02/23/20) sulfamethoxazole (Verified Allergy, Unknown, Hives, 01/28/16) trimethoprim (Verified Allergy, Unknown, Hives, 01/28/16) Home Meds Active Scripts Pantoprazole Sodium (PROTONIX) 40 Mg Tablet., 40 MG PO DAILY for 30 Days Prov:MINNIE MORIN MD 01/26/20 Alprazolam (ALPRAZOLAM) 0.25 Mg Tablet, 0.25 MG PO BID for 30 Days, TAB Prov:MINNIE MORIN MD 01/26/20 Aspirin (ASPIRIN EC) 81 Mg Tablet.dr, 81 MG PO DAILY for 30 Days Prov:MINNIE MORIN MD 01/26/20 Rosuvastatin 20MG (CRESTOR 20MG) 20 Mg Tablet, 20 MG PO HS for 30 Days, TAB Prov:MINNIE MORIN MD 01/26/20 Ranolazine (RANEXA) 500 Mg Tab.er.12h, 500 MG PO BID for 30 Days, TAB Prov:MINNIE MORIN MD 01/26/20 Nitroglycerin (NITROSTAT) 0.4 Mg Tab.subl, 0.4 MG SL PRN PRN for CHEST PAIN for 30 Days, TAB Prov:MINNIE MORIN MD 01/26/20 Carvedilol (CARVEDILOL) 6.25 Mg Tablet, 6.25 MG PO BID for 30 Days, TAB Prov:MINNIE MORIN MD 01/26/20 Ticagrelor (BRILINTA) 90 Mg Tablet, 90 MG PO BID for 30 Days, TAB Prov:MINNIE MORIN MD 01/26/20 Reported Medications Budesonide/Formoterol Fumarate (SYMBICORT 160-4.5 MCG INHALER) 10.2 Gm Hfa.aer.ad, 2 PUFF IH BID, #1 INHALER 5 Refills 01/28/16 Benzonatate (BENZONATATE) 200 Mg Capsule, 200 MG PO Q8HR, CAPSULE 01/28/16 Trazodone Hcl (TRAZODONE HCL) 150 Mg Tablet, 150 MG PO HS, TABLET 01/28/16 Albuterol Sulfate (ALBUTEROL SULFATE) 1.25 Mg/3 Ml Vial.neb, 1 VIAL NEB Q4HR, #75 MILLILITER 02/01/15 Past Medical History Medical History: coronary artery disease, high cholesterol, hypertension Surgical History: cardiac cath, appendectomy, cholecystectomy, hysterectomy, stent Family History Significant Family History: heart disease Social History Smoking: cigarettes Alcohol Use: none Drug Use: none Constitutional: denies no symptoms reported, denies see HPI, denies chills, denies diaphoresis, denies fever, denies malaise, denies weakness, denies other EENTM: denies no symptoms reported, denies see HPI, denies eye pain, denies blurred vision, denies tearing, denies double vision, denies ear pain, denies ear discharge, denies nose pain, denies nose congestion, denies throat pain, denies throat swelling, denies mouth pain, denies mouth swelling, denies other Respiratory: denies no symptoms reported, denies see HPI, denies cough, denies orthopnea, denies shortness of breath, denies SOB with exertion, denies SOB at rest, denies stridor, denies wheezing, denies other Cardiovascular: see HPI, chest pain Gastrointestinal: denies no symptoms reported, denies see HPI, denies abdomen distended, denies abdominal pain, denies blood streaked bowels, denies constipated, denies diarrhea, denies difficulty swallowing, denies nausea, denies poor appetite, denies poor fluid intake, denies rectal bleeding, denies vomiting, denies other Genitourinary: denies no symptoms reported, denies see HPI, denies burning, denies dysuria, denies discharge, denies frequency, denies flank pain, denies hematuria, denies incontinence, denies pain, denies urgency, denies other Musculoskeletal: denies no symptoms reported, denies see HPI, denies back pain, denies gout, denies joint pain, denies joint swelling, denies muscle pain, denies muscle stiffness, denies neck pain, denies other Skin: denies no symptoms reported, denies see HPI, denies change in color, denies change in hair/nails, denies dryness, denies lesions, denies lumps, denies rash, denies other All Other Systems: Reviewed and Negative Physical Exam General Appearance: No Apparent Distress, Anxious Neck: Supple, Normal Inspection Respiratory: lungs clear, normal breath sounds, no respiratory distress, no accessory muscle use Cardiovascular: Regular Rate, Rhythm, No Murmur Gastrointestinal: Normal Bowel Sounds, No Pulsatile Mass, Non Tender Extremities: Non-Tender, No Pedal Edema, No Calf Tenderness Neurologic/Psychiatric: Alert, Normal Mood/Affect, Oriented x 3 Skin: Normal Color, Warm/Dry Progress Progress cardiac enzymes negative; as per Dr. Morin's instruction, I informed patient she would need cardiac cath and that DR. Alvarado is OOT--if Dr Morin does not see good flow, she may need to be transferred to [place]. She refused to transfer to [facility], stating she would rather wait to see what Dr. Morin finds in the morning. EKG/XRAY/CT/US EKG Comments: sinus rhythm, VR 72, no acute STT changes XRAY: chest (no infiltrate) Consult/PCP Time Consult/PCP Called: 02:39 Consult/PCP: Dr. Morin Reason/Comments: admit obs #2 Time Consult/PCP Called: 03:00 Consult/PCP: Dr. Morin called back Reason/Comments: admit ICU, nitro gtt ER DEPART Departure Time of Disposition: 02:40 Disposition: 09 ADMITTED INPATIENT Impression: Primary Impression: Chest pain Condition: Stable Referrals: MINNIE MORIN MD (PCP) PRIMARY CARE PROVIDER Duration or Time Spent with Pa: 20 min Problem Qualifiers Primary Impression: Chest pain Chest pain type: precordial pain Qualified Codes: R07.2 - Precordial pain LORI RILEY DO Feb 23, 2020 02:00
[2020-02-23 02:05] LABS: BASOPHIL % 0.3 % (0.0-0.2); EOSINOPHIL # 0.2 10^3/uL (0.0-0.2); EOSINOPHIL % 1.3 % (0.0-5.0); LYMPHOCYTES # 3.02 10^3/uL1 (1.0-4.8); LYMPHOCYTES % 25.9 % (24.0-44.0); MEAN CORP HGB 31.1 pg (26-34); MONOCYTES # 0.7 10^3/uL (0.3-0.8); NEUTROPHIL # 7.7 10^3/uL (1.8-7.7); NEUTROPHILS % 66.3 % (41.0-85.0); PLATELET COUNT 326 10^3/uL (150-400); RED CELL DISTRIBUTION WIDTH 12.9 % (11.5-14.5)
[2020-02-23 02:33] LABS: CARBON DIOXIDE 22.4 mmol/L (20.0-32); GLUCOSE 114 mg/dL (70-110)
[2020-02-23 02:34] LABS: ALANINE AMINOTRANSFERASE(ML) 24 U/L (12-78); ALKALINE PHOSPHATASE 115 U/L (50-136); ASPARTATE AMINO TRANSFERASE 27 U/L (0-35); CALCIUM 8.8 mg/dL (8.4-10.5)
[2020-02-23] MEDS ORDERED: NITRO-BID TD ONE (02:36)
[2020-02-23] MEDS ORDERED: NS 1000ML 1,000 ML IV STA (02:44)
--- NOTE | 2020-02-23 03:01 | NUR ---
TRANSFER OF CARE REPORT CALLED TO RALPH TRAVIS RN. INFORMED OF PT CONDITION, DIAGNOSIS, AND PENDING APPOINTMENT AT 10:00 WITH CRISTINA. ALL QUESTIONS ANSWERED.
--- NOTE | 2020-02-23 03:05 | DIREP ---
PROCEDURE:CHEST 1 VIEW COMPARISON:[facility], CR, XRAY CHEST SINGLE VW, 02/18/2020, 01:06 PM. [facility], CR, XRAY CHEST SINGLE VW, 01/30/2020, 00:54 AM. INDICATIONS:chest pain FINDINGS: LUNGS/PLEURA:Stable hyperinflation with flattening of the hemidiaphragms and mild chronic interstitial changes, consistent with COPD. No focal consolidation. No pleural effusion or pneumothorax. VASCULATURE:Normal. Unremarkable pulmonary vasculature. CARDIAC:Heart size is normal. Stable calcified plaque at the aortic knob. MEDIASTINUM:Normal. No visible mass or adenopathy. BONES:Normal for age. No fracture or visible bony lesion. OTHER:Negative. CONCLUSION: 1. Stable findings of COPD. No focal airspace consolidation. 2. Heart size and pulmonary vasculature are normal. Dictated by: Adal Matias MD on 02/23/2020 at 03:02 AM
[2020-02-23] MEDS ORDERED: LOSA50TA14 PO (03:13)
[2020-02-23] MEDS ORDERED: CLAR-13 PO (03:13)
[2020-02-23] MEDS ORDERED: METR-67 PO (03:13)
[2020-02-23] MEDS ORDERED: NITROGLYCERIN 25MG/D5W 250ML 250 ML IV ONE (03:14)
[2020-02-23] MEDS ORDERED: NS 500ML 500 ML IV ONE (03:15)
--- NOTE | 2020-02-23 03:19 | NUR ---
VERBAL ORDERS VERBAL ORDERS RECEIVED FROM EDP DR. RILEY FOR 500ML OF IV NS, AND NTG GTT.
--- NOTE | 2020-02-23 03:19 | NUR ---
HIGHER LEVEL OF CARE EDP DR. RILEY AT BEDSIDE DISCUSS PLAN OF CARE WITH PT. PT TO BE UPGRADED TO UC, PER DR. EVANS, PENDING NTG GTT AND POSSIBLE CARDIAC CATH. PT VERBALIZED UNDERSTANDING.
[2020-02-23] MEDS ORDERED: NS 500ML 500 ML IV STA (03:20)
--- NOTE | 2020-02-23 03:21 | NUR ---
ASPIRIN AFTER COMPLETING MED RECONCILIATION, PT NOTED TO HAVE BEEN PRESCRIBED 81MG ASPIRIN. 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 CONFIRMED WITH PT ACCURATE AMOUNT TAKEN, PREVOUSLY STATED SHE TOOK TWO.
[2020-02-23] MEDS ORDERED: NS 1000ML 1,000 ML IV ONE (03:30)
[2020-02-23] MEDS ORDERED: NITROGLYCERIN 25MG/D5W 250ML 250 ML IV SCH ×2 (03:30→04:00)
[2020-02-23] MEDS ORDERED: RANEXA PO STA (03:40)
[2020-02-23] MEDS ORDERED: ATIVAN PO STA (03:40)
--- NOTE | 2020-02-23 03:45 | NUR ---
TRANSFER OF CARE REPORT CALLED TO JAYJAY LEAD ARCHITECT. INFORMED OF PT CONDITION, DIAGNOSIS, MEDICATION ADMINSTRATION, AND PENDING APPOINTMENT AT 10:00 WITH CRISTINA. ALL QUESTIONS ANSWERED.
[2020-02-23] MEDS ORDERED: NITROSTAT SL PRN (04:00)
--- NOTE | 2020-02-23 04:15 | NUR ---
Note agatha in EDM - 02/23/20 at 0417 by GEORGE TRANSFER OF CARE REPORT CALLED TO JAYJAY CLEANING MANAGER. INFORMED OF PT CONDITION, DIAGNOSIS, MEDICATION ADMINSTRATION, AND PENDING APPOINTMENT AT 10:00 WITH CRISTINA. ALL QUESTIONS ANSWERED.
--- NOTE | 2020-02-23 04:20 | NUR ---
Admit note Patient admitted to ICU from ER. Patient is awake, alert, oriented, and in no apparent distress at this time. Patient states she came to the ER for chest pain, intermittent since , worsening since last night, unrelieved by home ASA and Nitro use. Patient denies shortness of breath, weakness, dizziness, nausea or vomiting. Denies any exposure to COVID or COVID-related symptoms. Patient states that the chest pain was 3/10 in ER, left anterior chest, non-radiating, non-reproducible, and describes as a cold, icy feeling. Pain improved with Nitro gtt. Received patient with Nitro gtt at 10 ml/hr, as ordered by Dr. Morin. Patient placed on cardiac and O2 monitoring, oriented to room, call light within reach, safety measures in place.
[2020-02-23] MEDS: NS 1000ML 1,000 ML IV SCH ×2 (05:09→09:42)
[2020-02-23] MEDS ORDERED: VERSED ONE (07:08)
[2020-02-23] MEDS ORDERED: HEPARIN ONE (07:08)
[2020-02-23] MEDS ORDERED: SUBLIMAZE ONE (07:08)
[2020-02-23] MEDS ORDERED: XYLOCAINE ONE (07:45)
[2020-02-23] MEDS ORDERED: ASPIRIN EC PO SCH (09:00)
[2020-02-23] MEDS ORDERED: COREG PO SCH (09:00)
[2020-02-23] MEDS ORDERED: PROTONIX PO SCH (09:00)
[2020-02-23] MEDS ORDERED: BRILINTA PO SCH (09:00)
[2020-02-23] MEDS ORDERED: RANEXA PO SCH ×2 (09:00)
[2020-02-23] MEDS ORDERED: SYMBICORT 160-4.5 MCG INHALER IH SCH (09:00)
--- NOTE | 2020-02-23 09:41 | CCRH ---
DATE OF SERVICE: 02/23/2020 PRECATHETERIZATION DIAGNOSES: Unstable angina, post-RCA stent 1 month ago, having recurrent episodes of chest heaviness, tightness, normal EKG, troponin negative, 2 ER visits in the last 2 weeks with chest heaviness, tightness, responsive to nitro. Assess in-stent stenosis or assess for new lesions and assess for flow obstructive disease, hypertension, uncontrolled risk factors of still ongoing smoking, hypotension in the Emergency Room, resolved with IV fluids. POSTCATHETERIZATION DIAGNOSES: Left main is patent, proximal LAD has got a 30-40% luminal irregularity in the first diagonal branch has got an ostial 60-70% stenosis, which was not so well visualized on the previous heart catheterization. Circumflex has got a proximal 30-40% luminal irregularity, codominant right coronary artery with a proximal stent, fully patent without any flow obstruction. Distal vessel, fully patent. Left ventricle is normal in size with good wall contractility, ejection fraction of 60%. ANESTHESIA: 2% lidocaine. PREOPERATIVE MEDICATIONS: Versed 2 mg IV, fentanyl 25 mcg IV. ANTICOAGULATION: Heparin 2000 units intra-arterially, 2000 units in the flush solution, 1000 units in the dye solution. Dye use is Omnipaque. Total amount is 70 mL. CATHETERS: JL4 6-Mauritian, JR4 6-Mauritian angled pigtail catheter. ARTERIAL TIME: 9 minutes. FLUOROSCOPIC TIME: 1.5 minutes. PROCEDURES: Left heart catheterization, bilateral selective coronary arteriography, left ventriculography by right femoral Kathrin approach. Under local anesthesia, right femoral artery was punctured percutaneously by arterial needle, guide wire passed in right femoral artery, 6-Mauritian Cordis sheath introduced, side port of the sheath used for femoral arterial pressure monitoring. Sheath anchored with suture. Left Kathrin catheter introduced over guide wire into ascending aorta left coronary artery cannulated and left coronary angiography performed in UKRAINIAN and SEXTON projections with craniocaudal applications to visualize all branches. Left catheter exchanged for right coronary catheter and right coronary angiography performed in UKRAINIAN and SEXTON. This catheter exchanged for 6-Mauritian pigtail catheter and catheter crossed the aortic valve and left ventricular LVEDP measured and LV gram performed in 30 degrees SEXTON view with 30 mL Omnipaque dye and panning of descending aorta attempted. Patient tolerated procedure well. No complications of procedure. Angio-Seal deployed for hemostasis. LVEDP is 15 mm, LV pressure is 140/15, femoral artery pressure 125/69. No gradient across the aorta on pullback of the central catheter. FINAL CONCLUSIONS: Proximal LAD 30-40% luminal irregularity with first diagonal branch, has got an ostial 60-70% stenosis. Circumflex has 30-40% proximal lesion, patent right coronary, proximal stent with good MARK 3 flow in the distal right coronary artery without any flow obstruction, normal LV systolic function. Angio-Seal deployed. RECOMMENDATIONS: Optimization of medical therapy with Ranexa 500 mg twice a day, Coreg 6.25 mg twice a day, Crestor 20 mg once a day, aspirin 81 mg once a day, Brilinta 90 mg twice a day. She has H. pylori positive, on Biaxin, metronidazole and Protonix therapy for 2 weeks and continue same therapy. If she still continues to have chest pain, then probably do a perfusion study and see if she has got any provoked ischemic manifestations. At the present time, her diagonal branch can cause significant angina, risk factor modification is very important and has to quit smoking. Laxmichand MD Patience DR: NEHEMIAS/earl JOB# [id number]
--- NOTE | 2020-02-23 10:37 | HPH ---
ADMIT DATE: 02/23/2020 CHIEF COMPLAINT: Chest heaviness, tightness, shortness of breath and diaphoresis. HISTORY OF PRESENT ILLNESS: The patient is a 49-year-old white female who has known history of atherosclerotic heart disease about a month ago, she came with acute coronary syndrome, had a critical eccentric 90% stenosis in the right coronary artery with a long segment lesion and underwent PCI with stenting and she had mild disease in the LAD and the vessels were small and she has got uncontrolled risk factors of smoking almost 35-40 pack years of smoking, still continues to smoke more than half pack a day and she has been in the Emergency Room twice in the last 2 weeks of chest heaviness and tightness. The EKG has been unremarkable. Troponins were negative and she had H. pylori positive on the last visit, she was given Biaxin, metronidazole and Protonix combination for her H. pylori positive status, but she again had an episode of chest heaviness, tightness around 3:00 in the morning with pressure and bilateral arm pain and jaw pain and shortness of breath and diaphoresis. EKG was stable, was admitted with diagnosis of unstable angina, post-stent angina for further evaluation and management. ALLERGIES: CODEINE, EGGS, PSEUDOEPHEDRINE, SULFAMETHOXAZOLE, AND TRIMETHOPRIM. MEDICATIONS: She is on Protonix 40 mg once a day, Xanax 0.25 mg twice a day, aspirin 81 mg once a day, Crestor 20 mg once a day, Ranexa 500 mg twice a day, nitroglycerin on p.r.n. basis, Coreg 6.25 mg twice a day, Brilinta 90 mg twice a day. She was on losartan 50 mg once a day, blood pressure has been running low. She is on trazodone 150 mg once a day, albuterol nebulizer treatment, Symbicort 2 puffs daily. PAST MEDICAL HISTORY: Acute coronary syndrome month ago, right coronary stenting, dyslipidemia, hypertension, appendectomy, cholecystectomy, hysterectomy, RCA stent. SOCIAL HISTORY: A 90-pxvs-srxc history of smoking, no history of any ethanol abuse. FAMILY HISTORY: Positive for heart problems with several members in the family having heart disease. PHYSICAL EXAMINATION: GENERAL: She is alert, awake, oriented, 170 cm, 62 kilograms, BMI 21.7. VITAL SIGNS: Initial blood pressure was 90/60, given 500 mL normal saline fluid challenge and 100 mL of normal saline was infused and blood pressure came to 110/60 with a pulse of 65, respirations 18, temperature 98. HEENT: Unremarkable. NECK: No JVD, no carotid bruits. LUNGS: Clear. CARDIOVASCULAR: Heart sounds normal. Pain was relieved with IV nitro and oral nitro and she had taken 2 nitros before she came to the Emergency Room. LUNGS: Clear. HEART: Sounds S1, S2 normal. ABDOMEN: Soft, nontender, no organomegaly. EXTREMITIES: Distal pulses fairly well felt. NEUROLOGIC: Intact. EKG normal. LABORATORY DATA: CBC was 11.6 white count. Chemistries were normal at 114 glucose. Troponin 0.02. BNP was normal. Chest x-ray was unremarkable. EKG regular sinus rhythm and loss of R forces in the high lateral leads and nonspecific ST-T wave changes. IMPRESSION: Unstable angina, post-stent angina, uncontrolled risk factors of smoking, hypotension. At the present time, hypovolemia. PLAN: At this time, start IV nitro once blood pressure stabilizes with IV fluids and cardiac catheterization on the morning of 02/23/2020. Laxmichand MD Patience DR: NEHEMIAS/earl JOB# [id number]
--- NOTE | 2020-02-23 10:41 | DSH ---
DATE OF DISCHARGE: 02/23/2020 FINAL DIAGNOSES: Crescendo angina; coronary artery disease, post-RCA stenting, diagonal branch 70%-75% stenosis, proximal circumflex 30%-40% stenosis and intact LV systolic function; hypovolemia, hypotension, uncontrolled risk factors of smoking, history of possible chronic obstructive pulmonary disease. Please refer to my history and physical for the details. HOSPITAL COURSE: The patient is a 49-year-old white female a month ago underwent RCA stenting for ACS with critical lesion and did well and has been in the Emergency Room twice since then with chest heaviness, tightness. H. pylori was found positive and started on Protonix, Biaxin and metronidazole, but she had classic manifestations of unstable angina on 02/23/2020, admitted and IV nitro given along the IV fluids and taken to the cardiac catheterization lab and she had a patent RCA stent, in the diagonal branch 70 % stenosis at the ostium. Circumflex has 30%-40% luminal irregularity proximally. Sent home on medical therapy. Xanax 0.25 mg twice a day, aspirin 81 mg once a day, Symbicort 160/4.5 two puffs twice a day, Coreg 6.25 mg twice a day, continue her metronidazole 500 mg twice a day and Biaxin 500 mg twice a day for a total of 2 weeks, 1 more week remaining; nitroglycerin on p.r.n. basis, Protonix 40 mg once a day, Ranexa 500 mg twice a day, Crestor 20 mg once a day, Brilinta 90 mg twice a day, trazodone 150 mg at bedtime, and she will see me back in the clinic in 1 week. Laxmichand MD Patience DR: NEHEMIAS/earl JOB# [id number]
--- NOTE | 2020-02-23 12:29 | NUR ---
DISCHARGE PLANNING: PT LIVES HOME WITH HER SPOUSE. PT IS INDEPENDENT ON ADLS AND DOES NOT USE AND DME TO ASSIST WITH AMBULATION. PT'S PCP IS DR. EVANS AND NO FURTHER NEEDS NOTED OR IDENTIFIED AT THIS TIME. GOAL IS TO RETURN HOME TO ROUTINE SELF CARE. CM/SS TO CONTINUE TO FOLLOW FOR FURTHER DISCHARGE PLANNING NEEDS.
--- NOTE | 2020-02-23 13:30 | NUR ---
Right groin site soft and mildly tender on palpation. D/C instructions given to pt and spouse with no further questions at this time. Pt. D/C'd home with spouse via there car. VS stable upon d/c.
[2020-02-23] MEDS ORDERED: CRESTOR PO SCH (21:00)
== END 2020-02-23 13:15 | disposition home or self-care (01) ==
LOC: ER 01:37 → UNDOADMOB 02:43 → MS 02:43 → ICU 02:44 → MS 02:44 → UNDODISOB 13:15
PROVIDERS: ADMIT Specialist; ATTEND Specialist
DX: I25.110 Atherosclerotic heart disease of native coronary artery with unstable angina pectoris (principal); Z20.822 Contact with and (suspected) exposure to COVID-19; I95.9 Hypotension, unspecified; E86.1 Hypovolemia; E78.5 Hyperlipidemia, unspecified; I10 Essential (primary) hypertension; E78.00 Pure hypercholesterolemia, unspecified; F17.210 Nicotine dependence, cigarettes, uncomplicated; Z90.710 Acquired absence of both cervix and uterus; Z79.899 Other long term (current) drug therapy; Z79.82 Long term (current) use of aspirin; Z79.02 Long term (current) use of antithrombotics/antiplatelets; Z95.5 Presence of coronary angioplasty implant and graft
CPT/HCPCS: 36415; 71045; 80053; 82550; 82553; 82948; 83880; 84484 ×2; 85025; 85610; 85730; 87426; 87633; 93005; 93458; 96361; 96365; 96366; 99152; 99153; 99285; C1760; C1894 ×3; G0378 ×10; J1644 ×2; J2250; J3010; J3490; J7030 ×2; J7040; Q9967

== ENCOUNTER 2020-06-06 11:12 | Emergency (ER) | payer OTHER ==
[~2020-06-06] VITALS: Ht 170.2 cm; Wt 71.7 kg
[~2020-06-06 11:12] MED LIST changes: +CLAR-13 PO; +LOSA50TA14 PO; +METR-67 PO
[2020-06-06 11:28] VITALS: BP 189/99
--- NOTE | 2020-06-06 11:35 | NUR ---
ARRIVAL PT ARRIVED TO ED WITH C/O CHEST PAIN THAT FEELS LIKE REALLY COLD WATER INSIDE HER CHEST THAT STARTED AROUND 0930. PT TOOK ASA 325MG AND NITRO X1 AT HOME WITH RELIEF. BEDSIDE MONITORS APPLIED. VITAL SIGNS STABLE. RT CALLED FOR EKG. PT RECEIVED ZOFRAN 4MG IVP VIA EMS PRIOR TO ARRIVAL.
--- NOTE | 2020-06-06 11:37 | PCM.EKG ---
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
[2020-06-06] MEDS ORDERED: TICA90TA PO (11:44)
[2020-06-06] MEDS ORDERED: VALS160T3 PO (11:44)
[2020-06-06] MEDS ORDERED: BUDE10.7 INH (11:44)
[2020-06-06] MEDS ORDERED: CETI10TA18 PO (11:44)
[2020-06-06] MEDS ORDERED: PARO20TA4 PO (11:44)
[2020-06-06] MEDS ORDERED: PNV1TABL82 PO (11:44)
[2020-06-06] MEDS ORDERED: CHOL500062 PO (11:44)
[2020-06-06] MEDS ORDERED: MECO10005 PO (11:44)
[2020-06-06 11:45] LABS: BASOPHIL % 0.2 % (0.0-0.2); EOSINOPHIL # 0.1 10^3/uL (0.0-0.2); EOSINOPHIL % 0.5 % (0.0-5.0); LYMPHOCYTES # 2.51 10^3/uL1 (1.0-4.8); LYMPHOCYTES % 23.6 % (24.0-44.0); MEAN CORP HGB 30.8 pg (26-34); MONOCYTES # 0.4 10^3/uL (0.3-0.8); MONOCYTES % 3.7 % (5.0-12.0); NEUTROPHIL # 7.6 10^3/uL (1.8-7.7); NEUTROPHILS % 71.7 % (41.0-85.0); PLATELET COUNT 315 10^3/uL (150-400); RED CELL DISTRIBUTION WIDTH 13.5 % (11.5-14.5)
--- NOTE | 2020-06-06 12:01 | DIREP ---
PROCEDURE:CHEST 1 VIEW COMPARISON:[facility], CR, XRAY CHEST SINGLE VW, 02/23/2020, 01:55 AM. INDICATIONS:Chest pain FINDINGS: LUNGS/PLEURA:Again seen is hyperinflation of the lung eaton consistent with COPD. No infiltrate or pleural effusion is seen. VASCULATURE:Normal. Unremarkable pulmonary vasculature. CARDIAC:Normal. No cardiac silhouette abnormality or cardiomegaly. MEDIASTINUM:Normal. No visible mass or adenopathy. BONES:Normal. No fracture or visible bony lesion. OTHER:Negative. CONCLUSION:There are findings consistent with chronic obstructive pulmonary disease without acute infiltrate or significant interval change. Dictated by: Dalton Nava M.D. on 06/06/2020 at 11:58 AM
[2020-06-06 12:10] LABS: ALANINE AMINOTRANSFERASE(ML) 21 U/L (12-78); ALKALINE PHOSPHATASE 105 U/L (50-136); ASPARTATE AMINO TRANSFERASE 22 U/L (0-35); CALCIUM 8.9 mg/dL (8.4-10.5); CARBON DIOXIDE 25.7 mmol/L (20.0-32); GLUCOSE 107 mg/dL (70-110)
--- NOTE | 2020-06-06 12:38 | NUR ---
DR CRISTINA STONE MBA ON THE PHONE WITH DR EVANS.
[2020-06-06 12:39] VITALS: BP 136/77
--- NOTE | 2020-06-06 12:47 | ER.PDOC ---
General Chief Complaint: Chest Pain-Cardiac Nature Stated Complaint: CHEST PAIN Time seen by : 12:41 Source: patient Exam Limitations: no limitations History of Present Illness Initial Comments Chest discomfort this morning. She describes it as a tingling sensation with a feeling of cold water running on her chest. No shortness of breath that is new. She has COPD and chronically is short of breath. No nausea or vomiting and no diaphoresis. Patient took 2 nitros prior to coming to the ED which did not help. Her blood pressure was also high at home but is trending down here. Timing/Duration: 4-6 hours Severity/Quality: mild Radiation: no radiation Nitro Today/Relief: 0.4 mg x 2, Provided At Home, No Relief Aspirin Today: 325 mg x 1, Provided At Home Associated Symptoms: shortness of breath (chronic) Allergies: Coded Allergies: codeine (Verified Allergy, Unknown, 02/23/20) egg (Verified Allergy, Unknown, 02/01/15) pseudoephedrine (Verified Allergy, Unknown, 02/23/20) sulfamethoxazole (Verified Allergy, Unknown, Hives, 01/28/16) trimethoprim (Verified Allergy, Unknown, Hives, 01/28/16) Home Meds Active Scripts Pantoprazole Sodium (PROTONIX) 40 Mg Tablet.dr, 40 MG PO DAILY for 30 Days Prov:MINNIE MORIN MD 01/26/20 Alprazolam (ALPRAZOLAM) 0.25 Mg Tablet, 0.25 MG PO BID for 30 Days, TAB Prov:MINNIE MORIN MD 01/26/20 Aspirin (ASPIRIN EC) 81 Mg Tablet.dr, 81 MG PO DAILY for 30 Days Prov:MINNIE MORIN MD 01/26/20 Rosuvastatin 20MG (CRESTOR 20MG) 20 Mg Tablet, 20 MG PO HS for 30 Days, TAB Prov:MINNIE MORIN MD 01/26/20 Ranolazine (RANEXA) 500 Mg Tab.er.12h, 500 MG PO BID for 30 Days, TAB Prov:MINNIE MORIN MD 01/26/20 Nitroglycerin (NITROSTAT) 0.4 Mg Tab.subl, 0.4 MG SL PRN PRN for CHEST PAIN for 30 Days, TAB Prov:MINNIE MORIN MD 01/26/20 Carvedilol (CARVEDILOL) 6.25 Mg Tablet, 6.25 MG PO BID for 30 Days, TAB Prov:MINNIE MORIN MD 01/26/20 Reported Medications Budesonide/Glycopyr/Formoterol (Breztri Aerosphere Inhaler) 160 Mcg-9 Mcg-4.8 Mcg/Actuation Hfa.aer.ad, 1 INHALATION INH DAILY24 06/06/20 Cholecalciferol (Vitamin D3) (Vitamin D3) 125 Mcg (5000 Unit) Tab.rapdis, 5000 INT.UNIT PO DAILY24 06/06/20 Mecobalamin (B12 Active) 1,000 Mcg Tab.chew, 5000 MCG PO DAILY24 06/06/20 Pnv No.122/Iron/Folic Acid ( Multi Tablet) 1 Each Tablet, 1 EACH PO DAILY24, TAB 06/06/20 Valsartan (DIOVAN) 160 Mg Tablet, 160 MG PO DAILY24, TAB 06/06/20 Ticagrelor (BRILINTA) 90 Mg Tablet, 90 MG PO BID, TABLET 06/06/20 Cetirizine Hcl (CETIRIZINE HCL) 10 Mg Tablet, 10 MG PO DAILY24, TAB 06/06/20 Paroxetine Hcl (PAROXETINE HCL) 20 Mg Tablet, 10 MG PO DAILY24, TAB 06/06/20 Budesonide/Formoterol Fumarate (SYMBICORT 160-4.5 MCG INHALER) 10.2 Gm Hfa.aer.ad, 2 PUFF IH BID, #1 INHALER 5 Refills 01/28/16 Benzonatate (BENZONATATE) 200 Mg Capsule, 200 MG PO Q8HR, CAPSULE 01/28/16 Discontinued Reported Medications Metronidazole (METRONIDAZOLE) 500 Mg Tablet, 1 TAB PO BID for 7 Days, #14 TAB 0 Refills 02/23/20 Clarithromycin (CLARITHROMYCIN) 500 Mg Tablet, 1 TAB PO BID, #20 TAB 02/23/20 Trazodone Hcl (TRAZODONE HCL) 150 Mg Tablet, 150 MG PO HS, TABLET 01/28/16 Discontinued Scripts Ticagrelor (BRILINTA) 90 Mg Tablet, 90 MG PO BID for 30 Days, TAB Prov:MINNIE MORIN MD 01/26/20 Past Medical History Medical History: cardiac problems, COPD, emphysema, GERD, high cholesterol, heart attack, hypertension, other Surgical History: cardiac cath, cholecystectomy, hysterectomy Family History Significant Family History: no pertinent family hx Social History Smoking: less than 1 pack/day Alcohol Use: none Drug Use: none Constitutional: no symptoms reported EENTM: no symptoms reported Respiratory: see HPI Cardiovascular: see HPI Gastrointestinal: no symptoms reported Genitourinary: no symptoms reported All Other Systems: Reviewed and Negative Physical Exam General Appearance: No Apparent Distress, WD/WN Neck: Non-Tender, Full Range of Motion, Supple, Normal Inspection Respiratory: chest non-tender, lungs clear, normal breath sounds, no respiratory distress, no accessory muscle use Cardiovascular: Normal Peripheral Pulses, Regular Rate, Rhythm, No Edema, No Gallop, No JVD, No Murmur Gastrointestinal: Normal Bowel Sounds, No Organomegaly, No Pulsatile Mass, Non Tender, Soft Extremities: Normal Range of Motion, Non-Tender, Normal Inspection, No Pedal Edema, No Calf Tenderness, Normal Capillary Refill Neurologic/Psychiatric: slaughterer religious ritual II-XII NML as Tested, No Motor/Sensory Deficits, Alert, Normal Mood/Affect, Oriented x 3 Skin: Normal Color, Warm/Dry Lymphatic: No Adenopathy Results/Orders Results/Orders Orders - BEBE LEARY MD Cbc With Auto Diff (06/06/20 11:33) Comprehensive Metabolic Panel (06/06/20 11:33) Creatine Kinase (06/06/20 11:33) Creatine Kinase Mb (06/06/20 11:33) Troponin I (06/06/20 11:33) Probnp B-Type [facility] (06/06/20 11:33) PT (06/06/20 11:33) Partial Thromboplastin Time. (06/06/20 11:33) D-Dimer (06/06/20 11:33) Xr Chest 1v (06/06/20 11:33) Ekg-Routine (06/06/20 11:33) Vital Signs Date Time Temp Pulse Resp B/P (MAP) Pulse Ox O2 Delivery O2 Flow Rate FiO2 06/06/20 12:39 97.0 61 16 136/77 (96) 99 Room Air 06/06/20 11:28 97.0 56 16 06/06/20 11:28 97.0 56 16 189/99 (129) 99 Room Air 06/06/20 11:28 97.0 56 16 99 Laboratory Tests Test 06/06/20 11:41 White Blood Count 10.6 10^3/uL (4.5-11.0) Red Blood Count 4.68 10^6/uL (4.00-5.20) Hemoglobin 14.4 g/dL (12.0-15.0) Hematocrit 42.3 % (36.0-46.0) Mean Corpuscular Volume 90.4 fL (78-100) Mean Corpuscular Hemoglobin 30.8 pg (26-34) Mean Corpuscular Hemoglobin Concent 34.0 g/dL (33-36.5) Red Cell Distribution Width 13.5 % (11.5-14.5) Platelet Count 315 10^3/uL (150-400) Mean Platelet Volume 9.0 fL (7.8-11.0) Neutrophils (%) (Auto) 71.7 % (41.0-85.0) Lymphocytes (%) (Auto) 23.6 % (24.0-44.0) L Monocytes (%) (Auto) 3.7 % (5.0-12.0) L Neutrophils # (Auto) 7.6 10^3/uL (1.8-7.7) Lymphocytes # (Auto) 2.51 10^3/uL1 (1.0-4.8) Monocytes # (Auto) 0.4 10^3/uL (0.3-0.8) Absolute Immature Granulocyte (auto 0.03 10^3 u/L (0-2) Absolute Eosinophils (auto) 0.1 10^3/uL (0.0-0.2) Immature Granulocytes % 0.30 % (0.00-0.50) Eosinophils % 0.5 % (0.0-5.0) Basophils % 0.2 % (0.0-0.2) Basophils # 0.0 10^3/uL (0.0-0.1) Prothrombin Time 10.5 SEC (9.6-12.0) Prothrombin Time INR (Non-Therap) 1.0 Activated Partial Thromboplast Time 24.6 SEC (24.67-30.72) D-Dimer 0.19 mg/L (0.19-0.49) Sodium Level 140 mmol/L (132-145) Potassium Level 3.6 mmol/L (3.6-5.2) Chloride Level 103.0 mmol/L (96-109) Carbon Dioxide Level 25.7 mmol/L (20.0-32) Anion Gap 14.9 Blood Urea Nitrogen 7 mg/dL (7-18) Creatinine 0.70 mg/dL (0.59-1.40) Estimated GFR () 106.7 (>/=60) Est GFR (CKD-EPI)(Non-Afr French) 88.2 (>/=60) BUN/Creatinine Ratio 10.0 Glucose Level 107 mg/dL (70-110) Calcium Level 8.9 mg/dL (8.4-10.5) Total Bilirubin 0.5 mg/dL (0.2-1.0) Aspartate Amino Transferase (AST) 22 U/L (0-35) Alanine Aminotransferase (ALT) 21 U/L (12-78) Alkaline Phosphatase 105 U/L (50-136) Total Creatine Kinase 54 U/L (26-192) Creatine Kinase MB 0.7 ng/mL (0.5-3.6) Troponin I < 0.02 ng/mL (0.00-0.05) Pro-B-Type Natriuretic Peptide 110 pg/mL (0-125) Total Protein 6.8 g/dL (6.4-8.2) Albumin 3.6 g/dL (3.4-5.0) Globulin 3.2 Albumin/Globulin Ratio 1.125 Progress Progress I spoke with Dr. Morin who is patient's customer service sales consultant. He told me that patient has had 2 heart caths done by him and they were fine. He told me to discharge patient home and also instruct her to stop smoking which I did. Her symptoms have resolved prior to discharge and she feels good to go home. I told her that she can return to ED at anytime if her symptoms get worse. He voiced understanding. EKG/XRAY/CT/US EKG: NSR, no ST T wave changes EKG Comments: HR 55, normal P axis ER DEPART Departure Time of Disposition: 12:46 Disposition: 01 HOME, SELF-CARE Impression: Primary Impression: Chest pain Additional Impression: Anxiety Condition: Stable Referrals: MINNIE MORIN MD (PCP) PRIMARY CARE PROVIDER Additional Instructions: F/U with Dr. Morin in 1-2 days Return to ED if worsening or concerns Duration or Time Spent with Pa: 45 min Problem Qualifiers Primary Impression: Chest pain Chest pain type: unspecified Qualified Codes: R07.9 - Chest pain, unspecified BEBE LEARY MD Jun 06, 2020 12:47
== END 2020-06-06 13:02 | disposition home or self-care (01) ==
LOC: EDUNIT# 11:12 → ER 11:12 → EDBD 11:12 → ER 13:02
DX: F41.9 Anxiety disorder, unspecified (principal); R07.89 Other chest pain; K21.9 Gastro-esophageal reflux disease without esophagitis; J44.9 Chronic obstructive pulmonary disease, unspecified; I10 Essential (primary) hypertension; F17.210 Nicotine dependence, cigarettes, uncomplicated; E78.00 Pure hypercholesterolemia, unspecified; I25.2 Old myocardial infarction; Z79.51 Long term (current) use of inhaled steroids; Z79.82 Long term (current) use of aspirin; Z79.899 Other long term (current) drug therapy; Z88.1 Allergy status to other antibiotic agents; Z88.2 Allergy status to sulfonamides; Z88.5 Allergy status to narcotic agent; Z90.49 Acquired absence of other specified parts of digestive tract; Z90.710 Acquired absence of both cervix and uterus
CPT/HCPCS: 36415; 71045; 80053; 82550; 82553; 83880; 84484; 85025; 85379; 85610; 85730; 93005; 99285

== ENCOUNTER 2020-07-15 19:32 | Emergency (ER) | payer OTHER ==
[~2020-07-15] VITALS: Ht 170.2 cm; Wt 71.7 kg
[~2020-07-15 19:32] MED LIST changes: +BUDE10.7 INH; +CETI10TA18 PO; +CHOL500062 PO; +MECO10005 PO; +PARO20TA4 PO; +PNV1TABL82 PO; +VALS160T3 PO
[2020-07-15 20:00] VITALS: BP 133/96
--- NOTE | 2020-07-15 20:05 | NUR ---
Patient presents with C/O Sinus pressure, headache, non-productive cough. States, "I get bronchitis every year around this time, states headache and sinus pain 10/21."
[2020-07-15] MEDS ORDERED: DUO 0.5-3(2.5) MG/3 ML IH STA (20:11)
[2020-07-15] MEDS ORDERED: DUO 0.5-3(2.5) MG/3 ML IH ONE (20:17)
--- NOTE | 2020-07-15 20:36 | ER.PDOC ---
General Chief Complaint: Cough/Congestion Stated Complaint: SOB/COUGH Time seen by MD: 19:45 Source: patient Exam Limitations: no limitations History of Present Illness Initial Comments 49-year-old female complaining of 5 days of progressive cough sore throat nasal congestion she believes is due to bronchitis that she typically gets annually. Patient does have history of COPD and takes inhalers intermittently at home but has not used frequently lately. She denies fevers or chills. She states the cough is intermittently productive with a yellow sputum. She does not endorse bilateral maxillary sinus pressure and nasal drainage. She denies known sick contacts. She has taken some hytk-wpq-rxupony medications without significant relief. Timing/Duration: gradual Severity: moderate Associated Symptoms: runny nose, sinus pain/drainage, sore throat, cough, productive cough Prior symptoms/Treatment: Similar symptoms previous Allergies: Coded Allergies: codeine (Verified Allergy, Unknown, 02/23/20) egg (Verified Allergy, Unknown, 02/01/15) pseudoephedrine (Verified Allergy, Unknown, 02/23/20) sulfamethoxazole (Verified Allergy, Unknown, Hives, 01/28/16) trimethoprim (Verified Allergy, Unknown, Hives, 01/28/16) Home Meds Active Scripts Pantoprazole Sodium (PROTONIX) 40 Mg Tablet.dr, 40 MG PO DAILY for 30 Days Prov:MINNIE EVANS MD 01/26/20 Alprazolam (ALPRAZOLAM) 0.25 Mg Tablet, 0.25 MG PO BID for 30 Days, TAB Prov:MINNIE EVANS MD 01/26/20 Aspirin (ASPIRIN EC) 81 Mg Tablet.dr, 81 MG PO DAILY for 30 Days Prov:MINNIE EVANS MD 01/26/20 Rosuvastatin 20MG (CRESTOR 20MG) 20 Mg Tablet, 20 MG PO HS for 30 Days, TAB Prov:MINNIE EVANS MD 01/26/20 Ranolazine (RANEXA) 500 Mg Tab.er.12h, 500 MG PO BID for 30 Days, TAB Prov:MINNIE EVANS MD 01/26/20 Nitroglycerin (NITROSTAT) 0.4 Mg Tab.subl, 0.4 MG SL PRN PRN for CHEST PAIN for 30 Days, TAB Prov:MINNIE EVANS MD 01/26/20 Carvedilol (CARVEDILOL) 6.25 Mg Tablet, 6.25 MG PO BID for 30 Days, TAB Prov:MINNIE EVANS MD 01/26/20 Reported Medications Budesonide/Glycopyr/Formoterol (Breztri Aerosphere Inhaler) 160 Mcg-9 Mcg-4.8 Mcg/Actuation Hfa.aer.ad, 1 INHALATION INH DAILY24 06/06/20 Cholecalciferol (Vitamin D3) (Vitamin D3) 125 Mcg (5000 Unit) Tab.rapdis, 5000 INT.UNIT PO DAILY24 06/06/20 Mecobalamin (B12 Active) 1,000 Mcg Tab.chew, 5000 MCG PO DAILY24 06/06/20 Pnv No.122/Iron/Folic Acid ( Multi Tablet) 1 Each Tablet, 1 EACH PO DAILY24, TAB 06/06/20 Valsartan (DIOVAN) 160 Mg Tablet, 160 MG PO DAILY24, TAB 06/06/20 Ticagrelor (BRILINTA) 90 Mg Tablet, 90 MG PO BID, TABLET 06/06/20 Cetirizine Hcl (CETIRIZINE HCL) 10 Mg Tablet, 10 MG PO DAILY24, TAB 06/06/20 Paroxetine Hcl (PAROXETINE HCL) 20 Mg Tablet, 10 MG PO DAILY24, TAB 06/06/20 Budesonide/Formoterol Fumarate (SYMBICORT 160-4.5 MCG INHALER) 10.2 Gm Hfa. aer.ad, 2 PUFF IH BID, #1 INHALER 5 Refills 01/28/16 Benzonatate (BENZONATATE) 200 Mg Capsule, 200 MG PO Q8HR, CAPSULE 01/28/16 Constitutional: see HPI EENTM: see HPI Respiratory: see HPI Cardiovascular: denies no symptoms reported, denies see HPI, denies chest pain, denies edema, denies irregular heart rate, denies lightheadedness, denies palpitations, denies syncope, denies other Gastrointestinal: denies no symptoms reported, denies see HPI, denies abdomen distended, denies abdominal pain, denies blood streaked bowels, denies constipated, denies diarrhea, denies difficulty swallowing, denies nausea, denies poor appetite, denies poor fluid intake, denies rectal bleeding, denies vomiting, denies other Genitourinary: denies no symptoms reported, denies see HPI, denies burning, denies dysuria, denies discharge, denies frequency, denies flank pain, denies hematuria, denies incontinence, denies pain, denies urgency, denies other Musculoskeletal: denies no symptoms reported, denies see HPI, denies back pain, denies gout, denies joint pain, denies joint swelling, denies muscle pain, denies muscle stiffness, denies neck pain, denies other Skin: denies no symptoms reported, denies see HPI, denies change in color, denies change in hair/nails, denies dryness, denies lesions, denies lumps, denies rash, denies other Psychiatric/Neurological: denies no symptoms reported, denies see HPI, denies anxiety, denies depressed, denies emotional problems, denies headache, denies numbness, denies paresthesia, denies pre-existing deficit, denies seizure, denies tingling, denies tremors, denies weakness, denies other Endocrine: denies no symptoms reported, denies see HPI, denies excessive sweating, denies flushing, denies intolerance to cold, denies intolerance to heat, denies increased hunger, denies increased thrist, denies increased urine, denies unexplained weight gain, denies unexplaned weight loss, denies other Hematologic/Lymphatic: denies no symptoms reported, denies see HPI, denies anemia, denies blood clots, denies easy bleeding, denies easy bruising, denies swollen glands, denies other Past Medical History Medical History: cardiac problems, COPD Surgical History: , hysterectomy, stent Social History Alcohol Use: none Drug Use: none Physical Exam General Appearance: alert, no distress Eye: eyes nml inspection, lids & conjunct. nml Ear: ear nml Nose: nose nml Throat: pharyngeal erythema Neck: nml inspection, supple Respiratory: no resp.distress, wheezes Abdomen: non-tender CVS: reg rate & rhythm, heart sounds nml Skin: color nml, no rash Extremities: non-tender NEURO/PSYCH: oriented x 3, CN's nml as tested, motor nml, sensation nml, mood/affect nml Results/Orders Results/Orders Orders - NOEMI SALCEDO DO Ipratropium/Albuterol Sulfate (Duo 0.5-3 (07/15/20 20:11) Ipratropium/Albuterol Sulfate (Duo 0.5-3 (07/15/20 20:17) Vital Signs Date Time Temp Pulse Resp B/P (MAP) Pulse Ox O2 Delivery O2 Flow Rate FiO2 07/15/20 20:00 99.2 75 18 133/96 (108) 95 07/15/20 20:00 99.2 75 18 95 07/15/20 20:00 99.2 75 18 Administered Medications Medications (Trade) Dose Ordered Sig/Marge Route PRN Reason Start Time Stop Time Status Last Admin Dose Admin Albuterol/ Ipratropium (Duo 0.5-3(2.5) Mg/3 ml) 3 ml STAT STAT IH 07/15/20 20:11 07/15/20 20:14 DC 07/15/20 20:21 3 ML Progress Progress Patient given DuoNeb nebulized with improvement in breathing status. Discussed treatment with azithromycin and Medrol Dosepak. Patient agrees. ER DEPART Departure Time of Disposition: 20:34 Disposition: 01 HOME / SELF CARE / HOMELESS Impression: Primary Impression: Upper respiratory infection Additional Impression: Chronic obstructive pulmonary disease (COPD) Condition: Improved Referrals: MINNIE EVANS MD (PCP) PRIMARY CARE PROVIDER Comments RX: Azithromycin and Medrol Dosepack Duration or Time Spent with Pa: 20 Problem Qualifiers NOEMI SALCEDO DO Jul 15, 2020 20:36
== END 2020-07-15 20:42 | disposition home or self-care (01) ==
LOC: ER 19:32
DX: J44.9 Chronic obstructive pulmonary disease, unspecified (principal); J06.9 Acute upper respiratory infection, unspecified; Z79.51 Long term (current) use of inhaled steroids; Z79.82 Long term (current) use of aspirin; Z79.899 Other long term (current) drug therapy; Z88.1 Allergy status to other antibiotic agents; Z88.2 Allergy status to sulfonamides; Z88.5 Allergy status to narcotic agent; Z90.710 Acquired absence of both cervix and uterus
CPT/HCPCS: 94640; 99283

== ENCOUNTER 2020-12-21 15:21 | Emergency (ER) | payer OTHER ==
[~2020-12-21] VITALS: Ht 170.2 cm; Wt 72.6 kg
[2020-12-21 15:27] VITALS: BP 161/97
[2020-12-21 15:35] VITALS: BP 126/93
[2020-12-21] MEDS ORDERED: PREDNISONE PO STA (15:48)
[2020-12-21] MEDS ORDERED: ATIVAN PO STA (15:48)
[2020-12-21] MEDS ORDERED: DUO 0.5-3(2.5) MG/3 ML IH STA (15:48)
[2020-12-21] MEDS ORDERED: NORCO 10MG PO STA (15:48)
[2020-12-21] MEDS ORDERED: DECADRON IH STA (15:48)
--- NOTE | 2020-12-21 15:48 | PRM.ACF1 ---
FABY YI MD Dec 21, 2020 15:48
[2020-12-21 15:54] LABS: BASOPHIL % 0.3 % (0.0-0.2); EOSINOPHIL % 0.5 % (0.0-5.0); LYMPHOCYTES # 2.22 10^3/uL1 (1.0-4.8); LYMPHOCYTES % 34.9 % (24.0-44.0); MEAN CORP HGB 31.9 pg (26-34); MONOCYTES # 0.6 10^3/uL (0.3-0.8); MONOCYTES % 8.6 % (5.0-12.0); NEUTROPHIL # 3.5 10^3/uL (1.8-7.7); NEUTROPHILS % 55.5 % (41.0-85.0); RED CELL DISTRIBUTION WIDTH 13.1 % (11.5-14.5)
[2020-12-21] MEDS ORDERED: PREDNISONE ONE (15:59)
[2020-12-21] MEDS ORDERED: ATIVAN ONE (16:00)
[2020-12-21] MEDS ORDERED: NORCO 10MG PO ONE (16:00)
[2020-12-21] MEDS ORDERED: DECADRON ONE (16:13)
[2020-12-21] MEDS ORDERED: DUO 0.5-3(2.5) MG/3 ML IH ONE (16:13)
--- NOTE | 2020-12-21 16:14 | DIREP ---
PROCEDURE:CHEST 1 VIEW COMPARISON:[facility], CR, XRAY CHEST SINGLE VW, 06/06/2020, 11:41 AM. INDICATIONS:SOB FINDINGS: LUNGS/PLEURA:Pulmonary hyperinflation and chronic interstitial changes compatible with underlying COPD. No infiltrate or pleural effusion is seen. VASCULATURE:Normal. Unremarkable pulmonary vasculature. CARDIAC:Normal. No cardiac silhouette abnormality or cardiomegaly. MEDIASTINUM:Normal. No visible mass or adenopathy. BONES:Normal. No fracture or visible bony lesion. OTHER:Negative. CONCLUSION:COPD without acute infiltrate or significant change. Dictated by: Robi Lau M.D. on 12/21/2020 at 04:11 PM
--- NOTE | 2020-12-21 16:14 | PCM.EKG ---
[facility] Test Date: 2020-12-21 Test Time: 16:13:06 Pat Name: MISTY BOLDEN Department: Room: Gender: F Rn Acute Dialysis: nanda : 1970 Requested By: FABY YI Order Number: [id number] Reading MD: Measurements Intervals [place] Rate: 73 P: 85 MD: 127 QRS: 104 QRSD: 109 T: 57 QT: 414 QTc: 457 Interpretive Statements Sinus rhythm Consider left atrial enlargement Left posterior fascicular block Abnormal R-wave progression, late transition Compared to ECG 06/06/2020 11:34:10 Left posterior fascicular block now present Intraventricular conduction delay no longer present Please click the below link to view image of tracing.
[2020-12-21 16:20] LABS: ALANINE AMINOTRANSFERASE(ML) 33 U/L (12-78); ALKALINE PHOSPHATASE 94 U/L (50-136); ASPARTATE AMINO TRANSFERASE 26 U/L (0-35); CALCIUM 9.1 mg/dL (8.4-10.5); CARBON DIOXIDE 26.5 mmol/L (20.0-32); GLUCOSE 99 mg/dL (70-110)
[2020-12-21 16:45] VITALS: BP 132/87
[2020-12-21 17:45] VITALS: BP 118/71
--- NOTE | 2020-12-21 18:29 | ER.PDOC ---
General Chief Complaint: Cough/Congestion Stated Complaint: SOB,COUGH Time seen by MD: 18:33 Source: patient History of Present Illness Timing/Duration: 1 week Severity: moderate Activities at Onset: activity/exertion, rest Prior Episodes/Possible Cause: occasional episodes Modifying Factors: improves with albuterol inhaler, improves with albuterol nebulizer, improves with coughing, improves with rest Associated Symptoms: chest pain, cough, wheezing Allergies: Coded Allergies: codeine (Verified Allergy, Unknown, 02/23/20) egg (Verified Allergy, Unknown, 02/01/15) pseudoephedrine (Verified Allergy, Unknown, 02/23/20) sulfamethoxazole (Verified Allergy, Unknown, Hives, 01/28/16) trimethoprim (Verified Allergy, Unknown, Hives, 01/28/16) Home Meds Active Scripts Pantoprazole Sodium (PROTONIX) 40 Mg Tablet.dr, 40 MG PO DAILY for 30 Days Prov:MINNIE EVANS MD 01/26/20 Alprazolam (ALPRAZOLAM) 0.25 Mg Tablet, 0.25 MG PO BID for 30 Days, TAB Prov:MINNIE EVANS MD 01/26/20 Aspirin (ASPIRIN EC) 81 Mg Tablet.dr, 81 MG PO DAILY for 30 Days Prov:MINNIE EVANS MD 01/26/20 Rosuvastatin 20MG (CRESTOR 20MG) 20 Mg Tablet, 20 MG PO HS for 30 Days, TAB Prov:MINNIE EVANS MD 01/26/20 Ranolazine (RANEXA) 500 Mg Tab.er.12h, 500 MG PO BID for 30 Days, TAB Prov:MINNIE EVANS MD 01/26/20 Nitroglycerin (NITROSTAT) 0.4 Mg Tab.subl, 0.4 MG SL PRN PRN for CHEST PAIN for 30 Days, TAB Prov:MINNIE EVANS MD 01/26/20 Carvedilol (CARVEDILOL) 6.25 Mg Tablet, 6.25 MG PO BID for 30 Days, TAB Prov:MINNIE EVANS MD 01/26/20 Reported Medications Budesonide/Glycopyr/Formoterol (Breztri Aerosphere Inhaler) 160 Mcg-9 Mcg-4.8 Mcg/Actuation Hfa.aer.ad, 1 INHALATION INH DAILY24 06/06/20 Cholecalciferol (Vitamin D3) (Vitamin D3) 125 Mcg (5000 Unit) Tab.rapdis, 5000 INT.UNIT PO DAILY24 06/06/20 Mecobalamin (B12 Active) 1,000 Mcg Tab.chew, 5000 MCG PO DAILY24 06/06/20 Pnv No.122/Iron/Folic Acid ( Multi Tablet) 1 Each Tablet, 1 EACH PO DAILY24, TAB 06/06/20 Valsartan (DIOVAN) 160 Mg Tablet, 160 MG PO DAILY24, TAB 06/06/20 Ticagrelor (BRILINTA) 90 Mg Tablet, 90 MG PO BID, TABLET 06/06/20 Cetirizine Hcl (CETIRIZINE HCL) 10 Mg Tablet, 10 MG PO DAILY24, TAB 06/06/20 Paroxetine Hcl (PAROXETINE HCL) 20 Mg Tablet, 10 MG PO DAILY24, TAB 06/06/20 Budesonide/Formoterol Fumarate (SYMBICORT 160-4.5 MCG INHALER) 10.2 Gm Hfa.aer.ad, 2 PUFF IH BID, #1 INHALER 5 Refills 01/28/16 Benzonatate (BENZONATATE) 200 Mg Capsule, 200 MG PO Q8HR, CAPSULE 01/28/16 Past Medical History Medical History: coronary artery disease, COPD, hypertension Surgical History: cardiac cath, cholecystectomy, , hysterectomy Social History Alcohol Use: none Drug Use: none Reviewed Nursing Reviewed: Vital Signs, Abn. Noted Review of Systems All Other Systems: Reviewed and Negative Physical Exam General Appearance: No Apparent Distress, WD/WN HEENT: PERRL/EOMI, Normal ENT Inspection, TMs Normal, Pharynx Normal Neck: Non-Tender, Full Range of Motion, Supple, Normal Inspection Respiratory: respiratory distress, decreased breath sounds, accessory muscle use, rhonchi Cardiovascular: Normal Peripheral Pulses, Regular Rate, Rhythm, No Edema, No Gallop, No JVD, No Murmur Gastrointestinal: Normal Bowel Sounds, No Organomegaly, No Pulsatile Mass, Non Tender, Soft Extremities: Normal Range of Motion, Non-Tender, Normal Inspection, No Pedal Edema, No Calf Tenderness, Normal Capillary Refill 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 (12/21/20 15:43) Xr Chest 1v (12/21/20 15:43) Ekg-Routine (12/21/20 15:43) Troponin I High Sensitivity (12/21/20 15:43) Prednisone (Prednisone) (12/21/20 15:48) Hydrocodone/Acetaminophen ([place] 10mg) (12/21/20 15:48) Ipratropium/Albuterol Sulfate (Duo 0.5-3 (12/21/20 15:48) Dexamethasone Sodium Phosphate (Decadron (12/21/20 15:48) Lorazepam (Ativan) (12/21/20 15:48) Covid19 Antigen Angelique Zena (12/21/20 16:38) Vital Signs Date Time Temp Pulse Resp B/P (MAP) Pulse Ox O2 Delivery O2 Flow Rate FiO2 12/21/20 16:23 74 20 97 12/21/20 16:22 76 20 12/21/20 15:35 98.3 81 18 126/93 (104) 95 Room Air 12/21/20 15:27 98.3 81 18 12/21/20 15:27 98.3 81 18 95 Administered Medications Medications (Trade) Dose Ordered Sig/Marge Route PRN Reason Start Time Stop Time Status Last Admin Dose Admin Acetaminophen/ Hydrocodone Bitart ([place] 10mg) 1 each STAT STAT PO 12/21/20 15:48 12/21/20 15:49 UNV 12/21/20 16:16 1 EACH Albuterol/ Ipratropium (Duo 0.5-3(2.5) Mg/3 ml) 3 ml STAT STAT IH 12/21/20 15:48 12/21/20 15:49 UNV 12/21/20 15:48 3 ML Lorazepam (Ativan) 1 mg STAT STAT PO 12/21/20 15:48 12/21/20 15:49 UNV 12/21/20 16:16 1 MG Prednisone (Prednisone) 40 mg STAT STAT PO 12/21/20 15:48 12/21/20 15:49 UNV 12/21/20 16:18 40 MG Laboratory Tests Test 12/21/20 15:27 12/21/20 15:50 SARS-CoV-2 Antigen (Rapid) NEGATIVE (NEGATIVE) White Blood Count 6.4 10^3/uL (4.5-11.0) Red Blood Count 4.61 10^6/uL (4.00-5.20) Hemoglobin 14.7 g/dL (12.0-15.0) Hematocrit 43.9 % (36.0-46.0) Mean Corpuscular Volume 95.2 fL (78-100) Mean Corpuscular Hemoglobin 31.9 pg (26-34) Mean Corpuscular Hemoglobin Concent 33.5 g/dL (33-36.5) Red Cell Distribution Width 13.1 % (11.5-14.5) Platelet Count 252 10^3/uL (150-400) Mean Platelet Volume 8.8 fL (7.8-11.0) Neutrophils (%) (Auto) 55.5 % (41.0-85.0) Lymphocytes (%) (Auto) 34.9 % (24.0-44.0) Monocytes (%) (Auto) 8.6 % (5.0-12.0) Neutrophils # (Auto) 3.5 10^3/uL (1.8-7.7) Lymphocytes # (Auto) 2.22 10^3/uL1 (1.0-4.8) Monocytes # (Auto) 0.6 10^3/uL (0.3-0.8) Absolute Immature Granulocyte (auto 0.01 10^3 u/L (0-2) Absolute Eosinophils (auto) 0.0 10^3/uL (0.0-0.2) Immature Granulocytes % 0.20 % (0.00-0.50) Eosinophils % 0.5 % (0.0-5.0) Basophils % 0.3 % (0.0-0.2) H Basophils # 0.0 10^3/uL (0.0-0.1) Prothrombin Time 10.1 SEC (9.6-12.0) Prothrombin Time INR (Non-Therap) 0.9 Activated Partial Thromboplast Time 25.1 SEC (24.67-30.72) Sodium Level 140 mmol/L (132-145) Potassium Level 3.5 mmol/L (3.6-5.2) L Chloride Level 105.0 mmol/L (96-109) Carbon Dioxide Level 26.5 mmol/L (20.0-32) Anion Gap 12.0 Blood Urea Nitrogen 5 mg/dL (7-18) L Creatinine 0.60 mg/dL (0.59-1.40) Estimated GFR () 127.0 (>/=60) Est GFR (CKD-EPI)(Non-Afr [place]utanese) 105.0 (>/=60) BUN/Creatinine Ratio 8.0 Glucose Level 99 mg/dL (70-110) Calcium Level 9.1 mg/dL (8.4-10.5) Total Bilirubin 0.3 mg/dL (0.2-1.0) Aspartate Amino Transferase (AST) 26 U/L (0-35) Alanine Aminotransferase (ALT) 33 U/L (12-78) Alkaline Phosphatase 94 U/L (50-136) Total Creatine Kinase 41 U/L (26-192) Creatine Kinase MB < 0.5 ng/mL (0.5-3.6) L Troponin I High Sensitivity 5 ng/L (0-50) Pro-B-Type Natriuretic Peptide 142 pg/mL (0-125) H Total Protein 7.0 g/dL (6.4-8.2) Albumin 3.6 g/dL (3.4-5.0) Globulin 3.4 Albumin/Globulin Ratio 1.058 ER DEPART Departure Time of Disposition: 18:33 Disposition: 01 HOME / SELF CARE / HOMELESS Impression: Primary Impression: Chronic asthmatic bronchitis with acute exacerbation Condition: Improved Referrals: MINNIE EVANS MD (PCP) PRIMARY CARE PROVIDER Duration or Time Spent with Pa: FABY Barraza MD Dec 21, 2020 18:29
[2020-12-21 18:45] VITALS: BP 139/69
== END 2020-12-21 18:45 | disposition home or self-care (01) ==
LOC: ER 15:21
DX: J44.1 Chronic obstructive pulmonary disease with (acute) exacerbation (principal); I10 Essential (primary) hypertension; I25.10 Atherosclerotic heart disease of native coronary artery without angina pectoris; Z20.822 Contact with and (suspected) exposure to COVID-19; Z79.51 Long term (current) use of inhaled steroids; Z79.52 Long term (current) use of systemic steroids; Z79.82 Long term (current) use of aspirin; Z79.899 Other long term (current) drug therapy; Z88.1 Allergy status to other antibiotic agents; Z88.2 Allergy status to sulfonamides; Z88.5 Allergy status to narcotic agent; Z90.49 Acquired absence of other specified parts of digestive tract; Z90.710 Acquired absence of both cervix and uterus; Z91.012 Allergy to eggs
CPT/HCPCS: 36415; 71045; 80053; 82550; 82553; 83880; 84484; 85025; 85610; 85730; 87426; 93005; 94640; 99285; J1100; J7512

== ENCOUNTER 2021-01-04 13:21 | Emergency (ER) | payer OTHER ==
[~2021-01-04] VITALS: Ht 170.2 cm; Wt 72.6 kg
[2021-01-04 13:33] VITALS: BP 163/107
--- NOTE | 2021-01-04 14:08 | ER.PDOC ---
General Chief Complaint: Cough/Congestion Stated Complaint: SOB,COUGH,CONGESTION Time seen by MD: 14:05 Source: patient Exam Limitations: no limitations History of Present Illness Initial Comments Cough, congestion or shortness of breath for 2 weeks. Patient was seen here 2 weeks ago for the same complaint and discharged home on steroids and doxycycline. No chest pain. She has COPD and anxiety. Severity: moderate Modifying Factors: improves with albuterol nebulizer Associated Symptoms: anxiety, cough Prior symptoms/Treatment: Similar symptoms previous, Recenly Seen, Treated by Doctor Allergies: Coded Allergies: codeine (Verified Allergy, Unknown, 02/23/20) egg (Verified Allergy, Unknown, 02/01/15) pseudoephedrine (Verified Allergy, Unknown, 02/23/20) sulfamethoxazole (Verified Allergy, Unknown, Hives, 01/28/16) trimethoprim (Verified Allergy, Unknown, Hives, 01/28/16) Home Meds Active Scripts Pantoprazole Sodium (PROTONIX) 40 Mg Tablet.dr, 40 MG PO DAILY for 30 Days Prov:MINNIE EVANS MD 01/26/20 Alprazolam (ALPRAZOLAM) 0.25 Mg Tablet, 0.25 MG PO BID for 30 Days, TAB Prov:MINNIE EVANS MD 01/26/20 Aspirin (ASPIRIN EC) 81 Mg Tablet.dr, 81 MG PO DAILY for 30 Days Prov:MINNIE EVANS MD 01/26/20 Rosuvastatin 20MG (CRESTOR 20MG) 20 Mg Tablet, 20 MG PO HS for 30 Days, TAB Prov:MINNIE EVANS MD 01/26/20 Ranolazine (RANEXA) 500 Mg Tab.er.12h, 500 MG PO BID for 30 Days, TAB Prov:MINNIE EVANS MD 01/26/20 Nitroglycerin (NITROSTAT) 0.4 Mg Tab.subl, 0.4 MG SL PRN PRN for CHEST PAIN for 30 Days, TAB Prov:MINNIE EVANS MD 01/26/20 Carvedilol (CARVEDILOL) 6.25 Mg Tablet, 6.25 MG PO BID for 30 Days, TAB Prov:MINNIE EVANS MD 01/26/20 Reported Medications Budesonide/Glycopyr/Formoterol (Breztri Aerosphere Inhaler) 160 Mcg-9 Mcg-4.8 Mcg/Actuation Hfa.aer.ad, 1 INHALATION INH DAILY24 06/06/20 Cholecalciferol (Vitamin D3) (Vitamin D3) 125 Mcg (5000 Unit) Tab.rapdis, 5000 INT.UNIT PO DAILY24 06/06/20 Mecobalamin (B12 Active) 1,000 Mcg Tab.chew, 5000 MCG PO DAILY24 06/06/20 Pnv No.122/Iron/Folic Acid ( Multi Tablet) 1 Each Tablet, 1 EACH PO DAILY24, TAB 06/06/20 Valsartan (DIOVAN) 160 Mg Tablet, 160 MG PO DAILY24, TAB 06/06/20 Ticagrelor (BRILINTA) 90 Mg Tablet, 90 MG PO BID, TABLET 06/06/20 Cetirizine Hcl (CETIRIZINE HCL) 10 Mg Tablet, 10 MG PO DAILY24, TAB 06/06/20 Paroxetine Hcl (PAROXETINE HCL) 20 Mg Tablet, 10 MG PO DAILY24, TAB 06/06/20 Budesonide/Formoterol Fumarate (SYMBICORT 160-4.5 MCG INHALER) 10.2 Gm Hfa.aer.ad, 2 PUFF IH BID, #1 INHALER 5 Refills 01/28/16 Benzonatate (BENZONATATE) 200 Mg Capsule, 200 MG PO Q8HR, CAPSULE 01/28/16 Past Medical History Medical History: coronary artery disease, COPD Surgical History: cardiac cath, appendectomy, cholecystectomy, hysterectomy, stent Social History Alcohol Use: none Drug Use: none Review of Systems Constitutional: no symptoms reported EENTM: no symptoms reported Respiratory: see HPI Cardiovascular: no symptoms reported Gastrointestinal: no symptoms reported All Other Systems: Reviewed and Negative Physical Exam General Appearance: No Apparent Distress, WD/WN, Anxious HEENT: Normal ENT Inspection Neck: Non-Tender, Full Range of Motion, Supple, Normal Inspection Respiratory: chest non-tender, lungs clear, normal breath sounds, no respirator y distress, no accessory muscle use Cardiovascular: Normal Peripheral Pulses, Regular Rate, Rhythm, No Edema, No Gallop, No JVD, No Murmur Extremities: Normal Range of Motion, Non-Tender, Normal Inspection, No Pedal Edema, No Calf Tenderness, Normal Capillary Refill 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 Tested, No Motor/Sensory Deficits, Alert, Normal Mood/Affect, Oriented x 3 Skin: Normal Color, Warm/Dry Lymphatic: No Adenopathy Results/Orders Results/Orders Orders - BEBE LEARY MD Cbc With Auto Diff (01/04/21 13:59) Comprehensive Metabolic Panel (01/04/21 13:59) Creatine Kinase (01/04/21 13:59) Probnp B-Type Head Of Quality (01/04/21 13:59) Xr Chest 1v (01/04/21 13:59) Ekg-Routine (01/04/21 13:59) Troponin I High Sensitivity (01/04/21 13:59) Covid19 Antigen Angelique Zena (01/04/21 15:08) Vital Signs Date Time Temp Pulse Resp B/P (MAP) Pulse Ox O2 Delivery O2 Flow Rate FiO2 01/04/21 13:33 97.8 74 20 97 01/04/21 13:33 97.8 74 18 01/04/21 13:33 97.8 74 18 163/107 (125) 97 Room Air Laboratory Tests Test 01/04/21 13:33 01/04/21 14:15 SARS-CoV-2 Antigen (Rapid) NEGATIVE (NEGATIVE) White Blood Count 13.7 10^3/uL (4.5-11.0) H Red Blood Count 4.55 10^6/uL (4.00-5.20) Hemoglobin 14.5 g/dL (12.0-15.0) Hematocrit 43.8 % (36.0-46.0) Mean Corpuscular Volume 96.3 fL (78-100) Mean Corpuscular Hemoglobin 31.9 pg (26-34) Mean Corpuscular Hemoglobin Concent 33.1 g/dL (33-36.5) Red Cell Distribution Width 13.6 % (11.5-14.5) Platelet Count 280 10^3/uL (150-400) Mean Platelet Volume 8.6 fL (7.8-11.0) Neutrophils (%) (Auto) 63.5 % (41.0-85.0) Lymphocytes (%) (Auto) 25.7 % (24.0-44.0) Monocytes (%) (Auto) 8.4 % (5.0-12.0) Neutrophils # (Auto) 8.7 10^3/uL (1.8-7.7) H Lymphocytes # (Auto) 3.51 10^3/uL1 (1.0-4.8) Monocytes # (Auto) 1.2 10^3/uL (0.3-0.8) H Absolute Immature Granulocyte (auto 0.12 10^3 u/L (0-2) Absolute Eosinophils (auto) 0.2 10^3/uL (0.0-0.2) Immature Granulocytes % 0.90 % (0.00-0.50) H Eosinophils % 1.1 % (0.0-5.0) Basophils % 0.4 % (0.0-0.2) H Basophils # 0.1 10^3/uL (0.0-0.1) Sodium Level 141 mmol/L (132-145) Potassium Level 3.6 mmol/L (3.6-5.2) Chloride Level 102.0 mmol/L (96-109) Carbon Dioxide Level 27.3 mmol/L (20.0-32) Anion Gap 15.3 Blood Urea Nitrogen 5 mg/dL (7-18) L Creatinine 0.63 mg/dL (0.59-1.40) Estimated GFR () 120.1 (>/=60) Est GFR (CKD-EPI)(Non-Afr [place]ian) 99.2 (>/=60) BUN/Creatinine Ratio 7.0 Glucose Level 99 mg/dL (70-110) Calcium Level 8.7 mg/dL (8.4-10.5) Total Bilirubin 0.9 mg/dL (0.2-1.0) Aspartate Amino Transferase (AST) 14 U/L (0-35) Alanine Aminotransferase (ALT) 20 U/L (12-78) Alkaline Phosphatase 74 U/L (50-136) Total Creatine Kinase 30 U/L (26-192) Troponin I High Sensitivity 6 ng/L (0-50) Pro-B-Type Natriuretic Peptide 93 pg/mL (0-125) Total Protein 6.4 g/dL (6.4-8.2) Albumin 3.1 g/dL (3.4-5.0) L Globulin 3.3 Albumin/Globulin Ratio 0.939 Progress Progress Covid test is negative, chest x-ray shows COPD with no acute abnormality, chemistry is normal, Troponin is normal and WBC is 13.7 from taking steroids. She completed doxycycline and steroids a few days ago. Reviewed results with the patient. She is feeling better from her anxiety. EKG/XRAY/CT/US EKG: NSR, no ST T wave changes EKG Comments: HR 65, normal P axis ER DEPART Departure Time of Disposition: 15:46 Disposition: 01 HOME / SELF CARE / HOMELESS Impression: Primary Impression: Anxiety Additional Impressions: COPD (chronic obstructive pulmonary disease) Viral upper respiratory tract infection with cough Condition: Improved Referrals: MINNIE EVANS MD (PCP) PRIMARY CARE PROVIDER Additional Instructions: Continue home medications Follow-up with your PCP in 2 to 3 days Return to ED if worsening symptoms or concerns Duration or Time Spent with Pa: 60 min Problem Qualifiers Additional Impressions: COPD (chronic obstructive pulmonary disease) COPD type: unspecified COPD Qualified Codes: J44.9 - Chronic obstructive pulmonary disease, unspecified BEBE LEARY MD Jan 04, 2021 14:08
--- NOTE | 2021-01-04 14:09 | PCM.EKG ---
[facility] Test Date: 2021-01-04 Test Time: 14:08:47 Pat Name: MISTY BOLDEN Department: Room: Gender: F Fuse Spooler: ANA PAULA : 1970 Requested By: BEBE LEARY Order Number: [id number] Reading MD: Measurements Intervals [place] Rate: 65 P: 84 NC: 124 QRS: 103 QRSD: 115 T: 70 QT: 432 QTc: 450 Interpretive Statements Sinus rhythm Nonspecific intraventricular conduction delay Compared to ECG 12/21/2020 16:13:06 Intraventricular conduction delay now present Left posterior fascicular block no longer present Please click the below link to view image of tracing.
[2021-01-04 14:20] LABS: BASOPHIL # 0.1 10^3/uL (0.0-0.1); BASOPHIL % 0.4 % (0.0-0.2); EOSINOPHIL # 0.2 10^3/uL (0.0-0.2); EOSINOPHIL % 1.1 % (0.0-5.0); LYMPHOCYTES # 3.51 10^3/uL1 (1.0-4.8); LYMPHOCYTES % 25.7 % (24.0-44.0); MEAN CORP HGB 31.9 pg (26-34); MONOCYTES # 1.2 10^3/uL (0.3-0.8); MONOCYTES % 8.4 % (5.0-12.0); NEUTROPHIL # 8.7 10^3/uL (1.8-7.7); NEUTROPHILS % 63.5 % (41.0-85.0); PLATELET COUNT 280 10^3/uL (150-400); RED CELL DISTRIBUTION WIDTH 13.6 % (11.5-14.5)
[2021-01-04 14:42] LABS: CALCIUM 8.7 mg/dL (8.4-10.5); CARBON DIOXIDE 27.3 mmol/L (20.0-32)
--- NOTE | 2021-01-04 14:53 | DIREP ---
PROCEDURE:CHEST 1 VIEW COMPARISON:[facility], CR, XRAY CHEST SINGLE VW, 12/21/2020, 03:49 PM. INDICATIONS:Dyspnea FINDINGS: LUNGS/PLEURA:Hyperinflation and chronic interstitial changes. No infiltrate or pleural effusion. CARDIAC:Normal cardiac silhouette and normal pulmonary vascularity. MEDIASTINUM:Normal. BONES:Normal. OTHER:No additional findings. CONCLUSION:COPD. No acute cardiopulmonary process or significant change. Dictated by: Itzel Mcfarlane MD on 01/04/2021 at 02:50 PM
== END 2021-01-04 15:51 | disposition home or self-care (01) ==
LOC: ER 13:21
DX: J44.9 Chronic obstructive pulmonary disease, unspecified (principal); J06.9 Acute upper respiratory infection, unspecified; F41.9 Anxiety disorder, unspecified; I25.10 Atherosclerotic heart disease of native coronary artery without angina pectoris; Z20.822 Contact with and (suspected) exposure to COVID-19; Z79.51 Long term (current) use of inhaled steroids; Z79.82 Long term (current) use of aspirin; Z79.899 Other long term (current) drug therapy; Z88.1 Allergy status to other antibiotic agents; Z88.2 Allergy status to sulfonamides; Z88.5 Allergy status to narcotic agent; Z90.49 Acquired absence of other specified parts of digestive tract; Z90.710 Acquired absence of both cervix and uterus
CPT/HCPCS: 36415; 71045; 80053; 82550; 83880; 84484; 85025; 87426; 93005; 99285

== ENCOUNTER → 2021-01-11 | Outpatient (CLI) | payer OTHER | END | disposition home or self-care (01) | LOC: NPLAB 11:11 | PROVIDERS: ATTEND Specialist | DX: R05.9 Cough, unspecified (principal); Z20.822 Contact with and (suspected) exposure to COVID-19 | CPT/HCPCS: 87633 ==

== ENCOUNTER 2021-02-08 17:23 | Emergency (ER) | payer OTHER ==
[~2021-02-08] VITALS: Ht 170.2 cm; Wt 72.6 kg
[2021-02-08 18:20] VITALS: BP 149/100
--- NOTE | 2021-02-08 18:24 | NUR ---
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
--- NOTE | 2021-02-08 18:33 | ER.PDOC ---
General Chief Complaint: Dyspnea/Respdistress Stated Complaint: SOB,COUGHING Time seen by MD: 18:32 Source: patient Exam Limitations: no limitations History of Present Illness Initial Comments Shortness of breath and cough for 2 days. No fever or chills. She denies chest pain. Severity: moderate Prior Episodes/Possible Cause: occasional episodes, chronic episodes Modifying Factors: improves with coughing Associated Symptoms: cough Prior symptoms/Treatment: Similar symptoms previous, Recenly Seen, Treated by Doctor Allergies: Coded Allergies: codeine (Verified Allergy, Unknown, 02/23/20) egg (Verified Allergy, Unknown, 02/01/15) pseudoephedrine (Verified Allergy, Unknown, 02/23/20) sulfamethoxazole (Verified Allergy, Unknown, Hives, 01/28/16) trimethoprim (Verified Allergy, Unknown, Hives, 01/28/16) Home Meds Active Scripts Pantoprazole Sodium (PROTONIX) 40 Mg Tablet.dr, 40 MG PO DAILY for 30 Days Prov:MINNIE MORIN MD 01/26/20 Alprazolam (ALPRAZOLAM) 0.25 Mg Tablet, 0.25 MG PO BID for 30 Days, TAB Prov:MINNIE MORIN MD 01/26/20 Aspirin (ASPIRIN EC) 81 Mg Tablet.dr, 81 MG PO DAILY for 30 Days Prov:MINNIE MORIN MD 01/26/20 Rosuvastatin 20MG (CRESTOR 20MG) 20 Mg Tablet, 20 MG PO HS for 30 Days, TAB Prov:MINNIE MORIN MD 01/26/20 Ranolazine (RANEXA) 500 Mg Tab.er.12h, 500 MG PO BID for 30 Days, TAB Prov:MINNIE MORIN MD 01/26/20 Nitroglycerin (NITROSTAT) 0.4 Mg Tab.subl, 0.4 MG SL PRN PRN for CHEST PAIN for 30 Days, TAB Prov:MINNIE MORIN MD 01/26/20 Carvedilol (CARVEDILOL) 6.25 Mg Tablet, 6.25 MG PO BID for 30 Days, TAB Prov:MINNIE MORIN MD 01/26/20 Reported Medications Budesonide/Glycopyr/Formoterol (Breztri Aerosphere Inhaler) 160 Mcg-9 Mcg-4.8 Mcg/Actuation Hfa.aer.ad, 1 INHALATION INH DAILY24 06/06/20 Cholecalciferol (Vitamin D3) (Vitamin D3) 125 Mcg (5000 Unit) Tab.rapdis, 5000 INT.UNIT PO DAILY24 06/06/20 Mecobalamin (B12 Active) 1,000 Mcg Tab.chew, 5000 MCG PO DAILY24 06/06/20 Pnv No.122/Iron/Folic Acid ( Multi Tablet) 1 Each Tablet, 1 EACH PO DAILY24, TAB 06/06/20 Valsartan (DIOVAN) 160 Mg Tablet, 160 MG PO DAILY24, TAB 06/06/20 Ticagrelor (BRILINTA) 90 Mg Tablet, 90 MG PO BID, TABLET 06/06/20 Cetirizine Hcl (CETIRIZINE HCL) 10 Mg Tablet, 10 MG PO DAILY24, TAB 06/06/20 Paroxetine Hcl (PAROXETINE HCL) 20 Mg Tablet, 10 MG PO DAILY24, TAB 06/06/20 Budesonide/Formoterol Fumarate (SYMBICORT 160-4.5 MCG INHALER) 10.2 Gm Hfa.aer.ad, 2 PUFF IH BID, #1 INHALER 5 Refills 01/28/16 Benzonatate (BENZONATATE) 200 Mg Capsule, 200 MG PO Q8HR, CAPSULE 01/28/16 Past Medical History Medical History: cardiac problems, COPD, hypertension Surgical History: cardiac cath, hysterectomy, stent, other Social History Alcohol Use: occassionally Drug Use: Meth Review of Systems Constitutional: no symptoms reported EENTM: no symptoms reported Respiratory: see HPI Cardiovascular: no symptoms reported Gastrointestinal: no symptoms reported All Other Systems: Reviewed and Negative Physical Exam General Appearance: No Apparent Distress, WD/WN, Mild Distress Neck: Non-Tender, Full Range of Motion, Supple, Normal Inspection Respiratory: chest non-tender, no accessory muscle use, respiratory distress, prolonged expirations, wheezing, expiration Cardiovascular: Normal Peripheral Pulses, Regular Rate, Rhythm, No Edema, No Gallop, No JVD, No Murmur Gastrointestinal: Normal Bowel Sounds, No Organomegaly, No Pulsatile Mass, Non Tender, Soft Extremities: Normal Range of Motion, Non-Tender, Normal Inspection, No Pedal Edema, No Calf Tenderness, Normal Capillary Refill Neurologic/Psychiatric: shredder picker II-XII NML as Tested, No Motor/Sensory Deficits, Alert, Normal Mood/Affect, Oriented x 3 Skin: Normal Color, Warm/Dry Lymphatic: No Adenopathy Results/Orders Results/Orders Orders - BEBE LEARY MD Cbc With Auto Diff (02/08/21 18:30) Comprehensive Metabolic Panel (02/08/21 18:30) Creatine Kinase (02/08/21 18:30) Creatine Kinase Mb (02/08/21 18:30) Probnp B-Type Consulting Sales Executive (02/08/21 18:30) Arterial Blood Gas (02/08/21 18:30) Blood Culture (02/08/21 18:30) Xr Chest 1v (02/08/21 18:30) PT (02/08/21 18:30) Partial Thromboplastin Time. (02/08/21 18:30) Ekg-Routine (02/08/21 18:30) Troponin I High Sensitivity (02/08/21 18:30) Influenza A&B (02/08/21 18:30) Covid19 Antigen Angelique Zena (02/08/21 18:30) Ipratropium/Albuterol Sulfate (Duo 0.5-3 (02/08/21 20:06) Dexamethasone Sodium Phosphate (Decadron (02/08/21 20:06) Methylprednisolone Sod Succ (Solu-Medrol (02/08/21 20:06) Ipratropium/Albuterol Sulfate (Duo 0.5-3 (02/08/21 20:20) Methylprednisolone Sod Succ (Solu-Medrol (02/08/21 20:22) Water For Injection,Sterile (Water) (02/08/21 20:24) Vital Signs Date Time Temp Pulse Resp B/P (MAP) Pulse Ox O2 Delivery O2 Flow Rate FiO2 02/08/21 18:20 99.0 61 24 02/08/21 18:20 99.0 91 20 99 02/08/21 18:20 99.0 91 20 149/100 (116) 99 Room Air Administered Medications Medications (Trade) Dose Ordered Sig/Marge Route PRN Reason Start Time Stop Time Status Last Admin Dose Admin Methylprednisolone Sodium Succinate (Solu-Medrol) 125 mg STAT STAT IM 02/08/21 20:06 02/08/21 20:08 DC 12/29/21 20:28 125 MG Laboratory Tests Test 02/08/21 18:45 02/08/21 18:58 White Blood Count 10.2 10^3/uL (4.5-11.0) Red Blood Count 4.37 10^6/uL (4.00-5.20) Hemoglobin 13.9 g/dL (12.0-15.0) Hematocrit 41.2 % (36.0-46.0) Mean Corpuscular Volume 94.3 fL (78-100) Mean Corpuscular Hemoglobin 31.8 pg (26-34) Mean Corpuscular Hemoglobin Concent 33.7 g/dL (33-36.5) Red Cell Distribution Width 12.8 % (11.5-14.5) Platelet Count 201 10^3/uL (150-400) Mean Platelet Volume 9.2 fL (7.8-11.0) Neutrophils (%) (Auto) 68.2 % (41.0-85.0) Lymphocytes (%) (Auto) 23.6 % (24.0-44.0) L Monocytes (%) (Auto) 7.9 % (5.0-12.0) Neutrophils # (Auto) 6.9 10^3/uL (1.8-7.7) Lymphocytes # (Auto) 2.40 10^3/uL1 (1.0-4.8) Monocytes # (Auto) 0.8 10^3/uL (0.3-0.8) Absolute Immature Granulocyte (auto 0.01 10^3 u/L (0-2) Absolute Eosinophils (auto) 0.0 10^3/uL (0.0-0.2) Immature Granulocytes % 0.10 % (0.00-0.50) Eosinophils % 0.0 % (0.0-5.0) Basophils % 0.2 % (0.0-0.2) Basophils # 0.0 10^3/uL (0.0-0.1) Prothrombin Time 9.7 SEC (9.6-12.0) Prothrombin Time INR (Non-Therap) 0.9 Activated Partial Thromboplast Time 26.3 SEC (24.67-30.72) Blood Gas Sample Site LEFT RADIAL ARTERY Blood pH 7.484 (7.350-7.450) Blood Gas PCO2 33.8 mmHg (35.0-45.0) L Blood Gas PO2 57.7 mmHg (80.0-100.0) L Blood Gas HCO3 24.8 mmol/L (22.0-26.0) Blood Gas Base Excess 1.9 mmol/L (-2.0-2.0) Carlos Test POSITIVE Arterial Blood Oxygen Saturation 91.1 % (94.0-97.00) L Deoxyhemoglobin 8.8 % (0.0-5.0) H Carboxyhemoglobin 1.2 % (0.0-3.9) Methemoglobin 0.1 % (0.00-5.0) Total Hemoglobin 14.6 % (12.0-17.8) Total Oxygen Concentration 18.4 % (13.5-17.5) H Blood Gas Temperature 37 Oxygen Delivery Method ROOM AIR FiO2 21 % (20-101) Sodium Level 136 mmol/L (132-145) Potassium Level 3.1 mmol/L (3.6-5.2) L Chloride Level 97.0 mmol/L (96-109) Carbon Dioxide Level 27.0 mmol/L (20.0-32) Total Carbon Dioxide 25.9 mmol/L (23-27) Anion Gap 15.1 Blood Urea Nitrogen 4 mg/dL (7-18) L Creatinine 0.66 mg/dL (0.59-1.40) Estimated GFR () 113.8 (>/=60) Est GFR (CKD-EPI)(Non-Afr Mauritanian) 94.0 (>/=60) BUN/Creatinine Ratio 6.0 Glucose Level 88 mg/dL (70-110) Calcium Level 8.8 mg/dL (8.4-10.5) Total Bilirubin 0.7 mg/dL (0.2-1.0) Aspartate Amino Transferase (AST) 34 U/L (0-35) Alanine Aminotransferase (ALT) 36 U/L (12-78) Alkaline Phosphatase 65 U/L (50-136) Total Creatine Kinase 134 U/L (26-192) Creatine Kinase MB 0.5 ng/mL (0.5-3.6) Troponin I High Sensitivity 7 ng/L (0-50) Pro-B-Type Natriuretic Peptide 40 pg/mL (0-125) Total Protein 6.9 g/dL (6.4-8.2) Albumin 3.1 g/dL (3.4-5.0) L Globulin 3.8 Albumin/Globulin Ratio 0.815 Influenza Type A Antigen POSITIVE (NEG) A Influenza Type B Antigen NEGATIVE (NEG) SARS-CoV-2 Antigen (Rapid) NEGATIVE (NEGATIVE) Progress Progress Chemistry show potassium of 3.1, rest of chemistry is unremarkable. BNP is 40, CBC is normal, ABG show a pH of 7.48 and PO2 of 57.7 giving oxygen saturation of 91.1. Chest x-ray shows emphysema. Patient is positive for flu a but negative for strep and Covid. Reviewed results with the patient who voice understanding. Discussed with Dr. Morin and he is okay with patient being discharged home. She received a breathing treatment and steroid shot. She is being discharged home in stable condition. Wheezes resolved after she completed breathing treatment. EKG/XRAY/CT/US EKG: NSR EKG Comments: HR 84, normal P axis ER DEPART Departure Time of Disposition: 20:32 Disposition: 01 HOME / SELF CARE / HOMELESS Impression: Primary Impression: COPD exacerbation Additional Impression: Influenza A Condition: Improved Referrals: MINNIE MORIN MD (PCP) PRIMARY CARE PROVIDER Additional Instructions: Tamiflu Prednisone Z pack Follow-up with your PCP in 2 to 3 days Return to ED if worsening symptoms or concerns Duration or Time Spent with Pa: 60min Problem Qualifiers BEBE LEARY MD Feb 08, 2021 18:33
--- NOTE | 2021-02-08 18:47 | DIREP ---
PROCEDURE:CHEST 1 VIEW COMPARISON:[facility], CR, XRAY CHEST SINGLE VW, 01/04/2021, 02:36 PM. INDICATIONS:SOB FINDINGS: LUNGS/PLEURA:There is pulmonary hyperinflation consistent with underlying COPD. No focal consolidation. No effusions. VASCULATURE:Normal. Unremarkable pulmonary vasculature. CARDIAC:Normal. No cardiac silhouette abnormality or cardiomegaly. MEDIASTINUM:Normal. No visible mass or adenopathy. BONES:Normal. No fracture or visible bony lesion. OTHER:Negative. CONCLUSION:Emphysema. No superimposed consolidation or pleural effusion Dictated by: Smiley Samuel M.D. on 02/08/2021 at 06:45 PM
[2021-02-08 19:00] LABS: ABG PCO2 33.8 mmHg (35.0-45.0); ABG PH 7.484 (7.350-7.450); BE(B) 1.9 mmol/L (-2.0-2.0); HCO3act 24.8 mmol/L (22.0-26.0); pO2 57.7 mmHg (80.0-100.0)
[2021-02-08 19:02] LABS: BASOPHIL % 0.2 % (0.0-0.2); LYMPHOCYTES % 23.6 % (24.0-44.0); MEAN CORP HGB 31.8 pg (26-34); MONOCYTES # 0.8 10^3/uL (0.3-0.8); MONOCYTES % 7.9 % (5.0-12.0); NEUTROPHIL # 6.9 10^3/uL (1.8-7.7); NEUTROPHILS % 68.2 % (41.0-85.0); PLATELET COUNT 201 10^3/uL (150-400); RED CELL DISTRIBUTION WIDTH 12.8 % (11.5-14.5)
--- NOTE | 2021-02-08 19:20 | PCM.EKG ---
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
[2021-02-08] MEDS ORDERED: DUO 0.5-3(2.5) MG/3 ML IH STA (20:06)
[2021-02-08] MEDS ORDERED: DECADRON IH STA (20:06)
[2021-02-08] MEDS ORDERED: SOLU-MEDROL IM STA (20:06)
[2021-02-08] MEDS ORDERED: DUO 0.5-3(2.5) MG/3 ML IH ONE (20:20)
[2021-02-08] MEDS ORDERED: SOLU-MEDROL ONE (20:22)
[2021-02-08] MEDS ORDERED: WATER 20 ML ONE (20:24)
[2021-02-08 20:48] VITALS: BP 109/44
== END 2021-02-08 20:50 | disposition home or self-care (01) ==
LOC: ER 17:23
DX: J44.1 Chronic obstructive pulmonary disease with (acute) exacerbation (principal); J10.1 Influenza due to other identified influenza virus with other respiratory manifestations; I10 Essential (primary) hypertension; Z20.822 Contact with and (suspected) exposure to COVID-19; Z79.51 Long term (current) use of inhaled steroids; Z79.52 Long term (current) use of systemic steroids; Z79.82 Long term (current) use of aspirin; Z79.899 Other long term (current) drug therapy; Z88.1 Allergy status to other antibiotic agents; Z88.2 Allergy status to sulfonamides; Z88.5 Allergy status to narcotic agent; Z90.710 Acquired absence of both cervix and uterus
CPT/HCPCS: 36415; 36600; 71045; 80053; 82550; 82553; 82803; 83880; 84484; 85025; 85610; 85730; 87040 ×2; 87426; 87804 ×2; 93005; 94640; 96372; 99285; J2930; A4216

== ENCOUNTER 2021-03-01 02:29 | Emergency (ER) | payer OTHER ==
[~2021-03-01] VITALS: Ht 170.2 cm; Wt 72.6 kg
[2021-03-01] MEDS ORDERED: SOLU-MEDROL IV STA (02:32)
[2021-03-01] MEDS ORDERED: DUO 0.5-3(2.5) MG/3 ML IH STA (02:33)
--- NOTE | 2021-03-01 02:34 | NUR ---
NITRO AND ASA GIVEN PATIENT TOOK AT HOME PRIOR TO EMS ARRIVAL
--- NOTE | 2021-03-01 02:35 | NUR ---
[facility] CALLED CALLED THOR FOR XR CHEST
[2021-03-01] MEDS ORDERED: DUO 0.5-3(2.5) MG/3 ML IH ONE (02:36)
[2021-03-01] MEDS ORDERED: SOLU-MEDROL ONE (02:36)
[2021-03-01 02:45] VITALS: BP 128/75
[2021-03-01 02:50] LABS: BASOPHIL % 0.3 % (0.0-0.2); EOSINOPHIL # 0.1 10^3/uL (0.0-0.2); EOSINOPHIL % 0.9 % (0.0-5.0); LYMPHOCYTES # 3.35 10^3/uL1 (1.0-4.8); LYMPHOCYTES % 35.8 % (24.0-44.0); MONOCYTES # 0.8 10^3/uL (0.3-0.8); MONOCYTES % 8.6 % (5.0-12.0); NEUTROPHIL # 5.1 10^3/uL (1.8-7.7); NEUTROPHILS % 54.2 % (41.0-85.0); PLATELET COUNT 337 10^3/uL (150-400); RED CELL DISTRIBUTION WIDTH 13.5 % (11.5-14.5)
--- NOTE | 2021-03-01 03:02 | PCM.EKG ---
[facility] Test Date: 2021-03-01 Test Time: 02:58:51 Pat Name: MISTY BOLDEN Department: Room: Gender: F Clinical Education Academic Coordinator: : 1970 Requested By: ION FARLEY Order Number: [id number] Reading MD: Measurements Intervals [place]gil Rate: 69 P: 82 MA: 130 QRS: 93 QRSD: 112 T: 64 QT: 440 QTc: 472 Interpretive Statements Sinus rhythm Borderline intraventricular conduction delay Compared to ECG 02/08/2021 19:18:13 Left posterior fascicular block no longer present Please click the below link to view image of tracing.
[2021-03-01 03:15] LABS: CARBON DIOXIDE 24.9 mmol/L (20.0-32); GLUCOSE 114 mg/dL (70-110)
--- NOTE | 2021-03-01 03:36 | DIREP ---
PROCEDURE:CHEST 1 VIEW COMPARISON:[facility], CR, XRAY CHEST 2 VWS, 12/22/2016, 04:47 PM. [facility], CR, XRAY CHEST SINGLE VW, 02/08/2021, 06:35 PM. [facility], CR, XRAY CHEST SINGLE VW, 01/04/2021, 02:36 PM. [facility], CR, XRAY CHEST SINGLE VW, 12/21/2020, 03:49 PM. INDICATIONS:CHEST PAIN FINDINGS: LUNGS/PLEURA:There is pulmonary hyperinflation consistent with underlying COPD. No focal consolidation. No effusions. VASCULATURE:Normal. Unremarkable pulmonary vasculature. CARDIAC:Normal. No cardiac silhouette abnormality or cardiomegaly. MEDIASTINUM:Normal. No visible mass or adenopathy. BONES:Normal. No fracture or visible bony lesion. OTHER:Negative. CONCLUSION:COPD. No acute cardiopulmonary abnormalities. Dictated by: Etienne So M.D. on 03/01/2021 at 03:31 AM
--- NOTE | 2021-03-01 03:59 | ER.PDOC ---
General Chief Complaint: Chest Pain-Cardiac Nature Stated Complaint: CHEST PAIN Time seen by MD: 02:55 Source: patient, EMS Exam Limitations: no limitations History of Present Illness Timing/Duration: 1-3 hours Severity/Quality: moderate Radiation: no radiation Activities at Onset: activity/exertion Prior CP/Workup: Cardiac Cath Nitro Today/Relief: 0.4 mg x 1 Aspirin Today: 81 mg x 1 Associated Symptoms: cough, shortness of breath Prior symptoms/Treatment: Similar symptoms previous Allergies: Coded Allergies: codeine (Verified Allergy, Unknown, 02/23/20) egg (Verified Allergy, Unknown, 02/01/15) pseudoephedrine (Verified Allergy, Unknown, 02/23/20) sulfamethoxazole (Verified Allergy, Unknown, Hives, 01/28/16) trimethoprim (Verified Allergy, Unknown, Hives, 01/28/16) Home Meds Active Scripts Pantoprazole Sodium (PROTONIX) 40 Mg Tablet.dr, 40 MG PO DAILY for 30 Days Prov:MINNIE EVANS MD 01/26/20 Alprazolam (ALPRAZOLAM) 0.25 Mg Tablet, 0.25 MG PO BID for 30 Days, TAB Prov:MINNIE EVANS MD 01/26/20 Aspirin (ASPIRIN EC) 81 Mg Tablet.dr, 81 MG PO DAILY for 30 Days Prov:MINNIE EVANS MD 01/26/20 Rosuvastatin 20MG (CRESTOR 20MG) 20 Mg Tablet, 20 MG PO HS for 30 Days, TAB Prov:MINNIE EVANS MD 01/26/20 Ranolazine (RANEXA) 500 Mg Tab.er.12h, 500 MG PO BID for 30 Days, TAB Prov:MINNIE EVANS MD 01/26/20 Nitroglycerin (NITROSTAT) 0.4 Mg Tab.subl, 0.4 MG SL PRN PRN for CHEST PAIN for 30 Days, TAB Prov:MINNIE EVANS MD 01/26/20 Carvedilol (CARVEDILOL) 6.25 Mg Tablet, 6.25 MG PO BID for 30 Days, TAB Prov:MINNIE EVANS MD 01/26/20 Reported Medications Budesonide/Glycopyr/Formoterol (Breztri Aerosphere Inhaler) 160 Mcg-9 Mcg-4.8 Mcg/Actuation Hfa.aer.ad, 1 INHALATION INH DAILY24 06/06/20 Cholecalciferol (Vitamin D3) (Vitamin D3) 125 Mcg (5000 Unit) Tab.rapdis, 5000 INT.UNIT PO DAILY24 06/06/20 Mecobalamin (B12 Active) 1,000 Mcg Tab.chew, 5000 MCG PO DAILY24 06/06/20 Pnv No.122/Iron/Folic Acid ( Multi Tablet) 1 Each Tablet, 1 EACH PO DAILY24, TAB 06/06/20 Valsartan (DIOVAN) 160 Mg Tablet, 160 MG PO DAILY24, TAB 06/06/20 Ticagrelor (BRILINTA) 90 Mg Tablet, 90 MG PO BID, TABLET 06/06/20 Cetirizine Hcl (CETIRIZINE HCL) 10 Mg Tablet, 10 MG PO DAILY24, TAB 06/06/20 Paroxetine Hcl (PAROXETINE HCL) 20 Mg Tablet, 10 MG PO DAILY24, TAB 06/06/20 Budesonide/Formoterol Fumarate (SYMBICORT 160-4.5 MCG INHALER) 10.2 Gm Hfa.aer.ad, 2 PUFF IH BID, #1 INHALER 5 Refills 01/28/16 Benzonatate (BENZONATATE) 200 Mg Capsule, 200 MG PO Q8HR, CAPSULE 01/28/16 Past Medical History Medical History: cardiac problems, COPD, high cholesterol Surgical History: cardiac cath, appendectomy, cholecystectomy, , hysterectomy Social History Smoking: cigarettes, greater than 1 pack/day Alcohol Use: none Drug Use: none Respiratory: cough, shortness of breath, SOB with exertion, SOB at rest Cardiovascular: chest pain All Other Systems: Reviewed and Negative Physical Exam General Appearance: Mild Distress HEENT: PERRL/EOMI, Normal ENT Inspection, TMs Normal Neck: Non-Tender, Full Range of Motion Respiratory: chest non-tender, normal breath sounds, decreased breath sounds Cardiovascular: Normal Peripheral Pulses, Regular Rate, Rhythm, No Edema Gastrointestinal: Normal Bowel Sounds, No Organomegaly Extremities: Normal Range of Motion 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 (03/01/21 02:31) D-Dimer (03/01/21 02:31) Xr Chest 1v (03/01/21 02:31) Ekg-Routine (03/01/21 02:31) Troponin I High Sensitivity (03/01/21 02:31) Methylprednisolone Sod Succ (Solu-Medrol (03/01/21 02:32) Ipratropium/Albuterol Sulfate (Duo 0.5-3 (03/01/21 02:33) Methylprednisolone Sod Succ (Solu-Medrol (03/01/21 02:36) Ipratropium/Albuterol Sulfate (Duo 0.5-3 (03/01/21 02:36) Vital Signs Date Time Temp Pulse Resp B/P (MAP) Pulse Ox O2 Delivery O2 Flow Rate FiO2 03/01/21 02:45 98.1 81 16 03/01/21 02:45 98.1 81 16 128/75 (92) 98 Room Air 03/01/21 02:45 98.1 81 16 98 Administered Medications Medications (Trade) Dose Ordered Sig/Marge Route PRN Reason Start Time Stop Time Status Last Admin Dose Admin Albuterol/ Ipratropium (Duo 0.5-3(2.5) Mg/3 ml) 3 ml STAT STAT IH 03/01/21 02:33 03/01/21 02:34 DC 03/01/21 02:40 3 ML Methylprednisolone Sodium Succinate (Solu-Medrol) 125 mg STAT STAT IV 03/01/21 02:32 03/01/21 02:34 DC 03/01/21 02:40 125 MG Laboratory Tests Test 03/01/21 02:38 White Blood Count 9.4 10^3/uL (4.5-11.0) Red Blood Count 4.34 10^6/uL (4.00-5.20) Hemoglobin 13.9 g/dL (12.0-15.0) Hematocrit 42.4 % (36.0-46.0) Mean Corpuscular Volume 97.7 fL (78-100) Mean Corpuscular Hemoglobin 32.0 pg (26-34) Mean Corpuscular Hemoglobin Concent 32.8 g/dL (33-36.5) L Red Cell Distribution Width 13.5 % (11.5-14.5) Platelet Count 337 10^3/uL (150-400) Mean Platelet Volume 8.9 fL (7.8-11.0) Neutrophils (%) (Auto) 54.2 % (41.0-85.0) Lymphocytes (%) (Auto) 35.8 % (24.0-44.0) Monocytes (%) (Auto) 8.6 % (5.0-12.0) Neutrophils # (Auto) 5.1 10^3/uL (1.8-7.7) Lymphocytes # (Auto) 3.35 10^3/uL1 (1.0-4.8) Monocytes # (Auto) 0.8 10^3/uL (0.3-0.8) Absolute Immature Granulocyte (auto 0.02 10^3 u/L (0-2) Absolute Eosinophils (auto) 0.1 10^3/uL (0.0-0.2) Immature Granulocytes % 0.20 % (0.00-0.50) Eosinophils % 0.9 % (0.0-5.0) Basophils % 0.3 % (0.0-0.2) H Basophils # 0.0 10^3/uL (0.0-0.1) Prothrombin Time 10.2 SEC (9.6-12.0) Prothrombin Time INR (Non-Therap) 0.9 Activated Partial Thromboplast Time 26.8 SEC (24.67-30.72) D-Dimer 0.21 mg/L (0.19-0.49) Sodium Level 140 mmol/L (132-145) Potassium Level 3.5 mmol/L (3.6-5.2) L Chloride Level 104.0 mmol/L (96-109) Carbon Dioxide Level 24.9 mmol/L (20.0-32) Anion Gap 14.6 Blood Urea Nitrogen 9 mg/dL (7-18) Creatinine 0.65 mg/dL (0.59-1.40) Estimated GFR () 115.8 (>/=60) Est GFR (CKD-EPI)(Non-Afr Jamaican) 95.7 (>/=60) BUN/Creatinine Ratio 13.0 Glucose Level 114 mg/dL (70-110) H Calcium Level 8.8 mg/dL (8.4-10.5) Total Bilirubin 0.5 mg/dL (0.2-1.0) Aspartate Amino Transferase (AST) 17 U/L (0-35) Alanine Aminotransferase (ALT) 24 U/L (12-78) Alkaline Phosphatase 88 U/L (50-136) Total Creatine Kinase 26 U/L (26-192) Creatine Kinase MB < 0.5 ng/mL (0.5-3.6) L Troponin I High Sensitivity 5 ng/L (0-50) # Pro-B-Type Natriuretic Peptide 44 pg/mL (0-125) Total Protein 6.7 g/dL (6.4-8.2) Albumin 3.1 g/dL (3.4-5.0) L Globulin 3.6 Albumin/Globulin Ratio 0.861 Progress Progress Pt reports improvement with Breathing Tx. no CP or SOB now. Labs and Xray reviewed. essentially negative for Ac AR or coronary event. EKG/XRAY/CT/US EKG: NSR ER DEPART Departure Time of Disposition: 03:58 Disposition: 01 HOME / SELF CARE / HOMELESS Impression: Primary Impression: COPD exacerbation Additional Impression: Chest pain Condition: Stable Referrals: MINNIE EVANS MD (PCP) PRIMARY CARE PROVIDER Duration or Time Spent with Pa: 60 min Return to Work/School Can a patient return to work?: No Can a patient return to school: No Problem Qualifiers ION FARLEY MD Mar 01, 2021 03:59
--- NOTE | 2021-03-01 04:05 | NUR ---
IV DC'D TIP INTACT, NO BLEEDING
[2021-03-01 04:07] VITALS: BP 117/78
== END 2021-03-01 04:07 | disposition home or self-care (01) ==
LOC: EDBD 02:29 → ER 02:30
DX: J44.1 Chronic obstructive pulmonary disease with (acute) exacerbation (principal); E78.00 Pure hypercholesterolemia, unspecified; Z79.51 Long term (current) use of inhaled steroids; Z79.52 Long term (current) use of systemic steroids; Z79.82 Long term (current) use of aspirin; Z79.899 Other long term (current) drug therapy; Z88.1 Allergy status to other antibiotic agents; Z88.2 Allergy status to sulfonamides; Z88.5 Allergy status to narcotic agent; Z90.49 Acquired absence of other specified parts of digestive tract; Z90.710 Acquired absence of both cervix and uterus
CPT/HCPCS: 36415; 71045; 80053; 82550; 82553; 83880; 84484; 85025; 85379; 85610; 85730; 93005; 94640; 96374; 99285; J2930